=== PATIENT | female | born 1930 | race Caucasian/White ===

== ENCOUNTER 2018-10-24 10:20 | Inpatient (IN) ==
[2018-10-24] MEDS ORDERED: PEPCID IV ONE (10:51)
[2018-10-24] MEDS ORDERED: SOLU-MEDROL IV ONE (10:51)
[2018-10-24] MEDS ORDERED: ASPIRIN PO ONE (10:51)
[2018-10-24] MEDS ORDERED: ROCEPHIN 1 GM in NS 50 ML IV ONE (10:51)
[2018-10-24] MEDS ORDERED: SODIUM CHLORIDE 0.9% INJ ONE (10:51)
[2018-10-24] MEDS ORDERED: NS 500 ML IV ONE (10:51)
--- NOTE | 2018-10-24 11:00 | EKG Report ---
Test Performed on : 10/24/2018 10:58:32 AM Test Reason : stroke Blood Pressure : / mmHG Vent. Rate : 104 BPM Atrial Rate : 104 BPM P-R Int : 184 ms QRS Dur : 086 ms QT Int : 322 ms P-R-T Axes : 036 -18 065 degrees QTc Int : 423 ms Sinus tachycardia. Left ventricular hypertrophy with repolarization abnormality Abnormal ECG When compared with ECG of 05-SEP-2011 11:25, premature atrial complexes. are no longer present Vent. rate has increased BY 41 BPM Unconfirmed Result
--- NOTE | 2018-10-24 11:31 | Diag Imaging Result Doc PS360 ---
EXAM: CT HEAD W/O CONTRAST 10/24/2018 HISTORY: cva,weak left arm TECHNIQUE: This exam was performed using automated exposure control, adjustment of mA or kV according to patient size, and/or use of iterative reconstruction technique. COMMENT: There are calcifications in the internal carotid and vertebral arteries. There is moderate generalized cerebral atrophy and patchy lucencies present throughout the white matter both hemispheres. There is no evidence of mass effect or bleed. There are no previous studies available for comparison. The calvarium is intact. The visualized paranasal sinuses are clear. IMPRESSION: Atrophy and chronic ischemic change. No evidence of acute disease. Electronically signed by Tuan Bernabe 10/24/2018 11:29 AM
--- NOTE | 2018-10-24 11:34 | Diag Imaging Result Doc PS360 ---
EXAM: CHEST-PORTABLE 10/24/2018 HISTORY: cough TECHNIQUE: AP portable COMMENT: There is increased interstitial opacity throughout both lungs compared to 09/05/2011. The lungs are not as well-expanded. IMPRESSION: Pulmonary edema and/or interstitial fibrosis. Electronically signed by Tuan Bernabe 10/24/2018 11:32 AM
[2018-10-24 11:43] LABS: ALLEN TEST YES; BE -4.7 mmoll (-3.0-3.0); BLOOD TYPE ARTERIAL; HCO3-(ACT) 21.2 mmoll (20.0-26.0); METHB 0.8 % (0.0-1.5); O2(CT) 15.3 mL/dL (15.0-23.0); O2HB 94.4 % (95.0-99.0); PCO2(98.6) 32 mmHg (35-45); PO2(98.6) 72 mmHg (60-100); SAMPLE BLOOD; SAO2 97.1 % (95.0-100.0); THB 11.5 g/dL (11.5-17.4); pH(98.6) 7.39 (7.35-7.45)
[2018-10-24 11:44] LABS: MODALITY CANNULA
[2018-10-24 12:36] LABS: URINE SOURCE CLEAN CATCH
[2018-10-24 12:39] LABS: BASO# 0.04 X1000 (0.0-0.2); BASO% 0.4 % (0.0-0.8); EOS# 0.26 X1000 (0.0-0.7); EOS% 2.6 % (0.0-10.0); HEMATOCRIT 36.3 % (37.0-47.0); HEMOGLOBIN 11.7 g/dL (12.0-16.0); IMM GRAN# 0.03 X1000 (0.0-0.04); IMM GRAN% 0.3 % (0.0-0.5); LYMPH# 1.23 X1000 (1.2-3.4); LYMPH% 12.3 % (20.5-51.1); MCH 28.5 PG (27-31); MCHC 32.2 g/dL (33-37); MCV 88.5 FL (81-99); MONO# 0.73 X1000 (0.11-0.59); MONO% 7.3 % (1.7-9.3); MPV 9.6 FL (7.4-10.4); NEUT# 7.68 X1000 (1.4-6.5); NEUT% 77.1 % (42.2-75.2); PLT 288 X1000 (130-400); RDW 13.5 % (11.5-14.5); WBC 9.97 X1000 (4.8-10.8)
[2018-10-24 12:40] LABS: BILIRUBIN URINE NEGATIVE (NEGATIVE); BLOOD URINE NEGATIVE (NEGATIVE); COLOR YELLOW; GLUCOSE URINE NEGATIVE (NEGATIVE); KETONE URINE NEGATIVE (NEGATIVE); LEUKOCYTES URINE SMALL (NEGATIVE); NITRITE URINE NEGATIVE (NEGATIVE); PH URINE 5.5; PROTEIN URINE NEGATIVE (NEGATIVE); SP GRAVITY URINE 1.002; TURBIDITY URINE CLEAR (CLEAR); UROBILINOGEN URINE NORMAL (NORMAL)
[2018-10-24 12:42] LABS: UR EPITHELIAL CELLS <10 /HPF (<10); URINE BACTERIA NEGATIVE /HPF; URINE RBC <10 /HPF (<10); URINE WBC <10 /HPF (<10)
[2018-10-24 12:47] LABS: INR 1.07; PROTIME 14.8 Seconds (11.0-16.0)
[2018-10-24 12:48] LABS: PTT 26.7 Seconds (22.3-41.8)
[2018-10-24 13:03] LABS: CALCIUM 8.8 mg/dL (8.8-10.2); CREATININE 1.4 mg/dL (0.5-0.9); POTASSIUM 4.4 mmol/L (3.5-5.1)
[2018-10-24 14:27] LABS: IRON SATURATION 4 %; TIBC 281 ug/dL; TOTAL IRON 11 ug/dL (49-151); UNBOUND IRON 270 ug/dL (112-346)
--- NOTE | 2018-10-24 14:27 | Diag Imaging Result Doc PS360 ---
EXAM: CT THORAX W/O CONTRAST INDICATION: resp failure TECHNIQUE: This exam was performed using automated exposure control, adjustment of mA or kV according to patient size, and/or use of iterative reconstruction technique. COMPARISON: None. FINDINGS: There is severe interstitial thickening throughout both lungs with groundglass opacities. Most of this represents pulmonary fibrosis. It would be very difficult to exclude superimposed pulmonary edema or pneumonia as there are no prior studies available for comparison. There is no pleural fluid collection and no pneumothorax. There is no cardiomegaly. There is a calcified right lower lobe nodule indicating a granuloma. There are calcified mediastinal lymph nodes indicating prior granulomatous disease. No significant lymphadenopathy is appreciated, otherwise. Limited views of the upper abdomen are essentially unremarkable. IMPRESSION: Severe bilateral pulmonary fibrosis. A component of superimposed pneumonia or interstitial edema cannot be excluded as there are no prior studies available for comparison. Electronically signed by Shayne Shah 10/24/2018 2:25 PM
[2018-10-24] MEDS ORDERED: DUONEB (A & A) INH PRN (14:33)
[2018-10-24 14:46] LABS: FERRITIN 313 ng/mL (13-150)
--- NOTE | 2018-10-24 15:31 | HISTORY AND PHYSICAL ---
PRIMARY CARE PROVIDER: ERENDIRA Disla CHIEF COMPLAINT: Altered mental status, cough, and hypoxia. HISTORY OF PRESENT ILLNESS: Mrs. Gomez is a very pleasant 88-year-old female with a history of mild dementia, GERD, hyperlipidemia, and arthritis, who presents from [facility] with hypoxia and altered mental status. She has had a cough that started around a week ago and was treated with nebulized bronchodilators with some relief, but she is having increased cough, increased respiratory rate, and subjective fevers and chills. This morning, after she had breakfast, she sat down in one of the hallways and started having nausea and vomiting. When the staff checked on her she had a somewhat of a blank gaze and was confused. Vital signs were checked and she was found to be hypoxic. 911 was called and she was brought here. She is complaining of left arm weakness. There is clear left upper extremity neuro deficit consistent with cerebrovascular accident. Chest x-ray shows a fibrotic type picture with pulmonary edema. She, herself, denies any chest pain or lower extremity edema. She does have a cough with shortness of breath but this has only been over the past few days and weeks. She denies orthopnea or PND. She also had a head CT done which did not show anything acute. The rest of her lab data did show mild renal insufficiency, mild elevation in her lactic acid, and some anemia. Currently, she is hemodynamically stable. She is complaining of cough. We will admit her for further treatment and evaluation. PAST MEDICAL HISTORY: 1. Fairly recent diagnosis of CKD stages 1 to 2. 2. Mild dementia. 3. GERD. 4. Hyperlipidemia. 5. Osteoarthritis. SURGICAL HISTORY: She has had a hysterectomy, multiple breast biopsies, which were negative, right hip arthroplasty. SOCIAL HISTORY: She currently resides at [facility]. She is . Denies tobacco, alcohol, or drug use. FAMILY HISTORY: Father from leukemia, mother from CHF. REVIEW OF SYSTEMS: A 14-point review of systems obtained and found to be negative with the exception of the HPI. ALLERGIES: Codeine. HOME MEDICATIONS: Have not yet been compiled by the nursing staff. PHYSICAL EXAMINATION: VITAL SIGNS: Blood pressure 185/86. Heart rate 105. Respiratory rate 23. O2 saturation 96% on 2 L nasal cannula. Temperature 98.4. GENERAL: Elderly female lying on the hospital bed in no acute distress. NEUROLOGIC: She is somewhat confused. She is unable to give the exact day and month but does give the correct year, President, and place. She has clear left upper extremity weakness, 3/5, as compared to 5/5 in all other extremities. She has diminished sensation over the left hand and has diminished random alternating movements. Her uplcpk-ph-meji is also clearly abnormal. She does not have any facial drooping or slurred speech. Her speech pattern is clear. HEENT: Head is atraumatic and normocephalic. Pupils are equal, round, and reactive to light. Oral mucosa is somewhat dry. NECK: Trachea is midline. There is no JVD. CHEST: Fine crackles in the lung bases. CV: Slightly irregular. S1, S2 is noted. There is a 2/6 murmur. GI: Soft, nondistended, nontender. Bowel sounds are active. EXTREMITIES: No edema, clubbing, or cyanosis. Pulses are 1+ bilaterally. IMAGING: Head CT shows atrophy and chronic ischemic changes, nothing acute. Chest x-ray shows pulmonary edema and/or interstitial fibrosis. EKG shows sinus tachycardia with LVH. LABORATORY DATA: WBC 9.97, hemoglobin 11.7, hematocrit 36.3, platelet count 288. INR 1.07. ABG on nasal cannula: pH 7.39, CO2 32, O2 72, bicarbonate 21.2. Sodium 139, potassium 4.4, chloride 103, CO2 18, anion gap 18, BUN 20, creatinine 1.4, glucose 110, calcium 8.8. Troponin negative. Lactic acid 2.3. UA shows small leukocytes, otherwise negative ASSESSMENT AND PLAN: 1. Suspected Acute CVA. Will order the routine stroke work up to include an MRI and MRA of the brain carotid duplex study and echocardiogram. Will start the patient on aspirin and lipitor. PT and OT will be consulted. The patient will be monitored on telemetry. 2. Community acquired pneumonia: She does have subjective fever and chills with cough. We will check a thorax CT to evaluate the lung parenchyma better, given the reports of possible fibrosis. Will continue breathing treatments, aggressive pulmonary toilet , and may consider Pulmonary consultation, depending on the CT. 3. Nausea and vomiting: Unclear if there are any specific gastrointestinal issues. She denies any abdominal pain. No diarrhea, melena, or hematochezia. It is possible that it is secondary either to possible stroke and/or post-tussive emesis. Will monitor her for now. Hepatic panel is pending. 4. Anemia: Will check iron studies and treat accordingly. 5. Chronic kidney disease: Creatinine 1.4. We are checking urine electrolytes. Will hold off on any nephrotoxic agents and monitor response. 6. Hyperlipidemia/hypertension/gastroesophageal reflux disease/dementia: These are all stable. We will continue home medications with the exception of any antihypertensives and nephrotoxic agents. 7. Deep venous thrombosis with sequential compression devices. Further recommendations to follow. Dictated by ERENDIRA Estrella for Randa Vázquez MD cc: ERENDIRA Estrella MD Amanda K. Anderson, CRNP I performed a face to face encounter on the patient. I reviewed all imaging and labs on the patient. I agree with the H&P as dictated. The patient presented to the ER with a chief complaint of altered mental status, left upper extremity weakness and left facial droop. The head CT showed atrophy and chronic ischemic changes. On exam, the patient was noted to be alert but oriented to person and place only. She had 3/5 strength in her left arm and 5/5 strength in all other extremities. The patient has coarse breath sounds with fine expiratory crackles. The patient will be admitted to the medical floor on telemetry. Will also initiate a stroke workup. Given the findings of pulmonary fibrosis on the chest xray, a CT of the thorax will be obtained. The patient will be started on antibiotics and bronchodilator therapy for pneumonia. Will consult with the bindery cutter operator for further assistance with management. AMRIK
--- NOTE | 2018-10-24 16:08 | Diag Imaging Result Doc PS360 ---
EXAM: MRI BRAIN W/O CONTRAST INDICATION: left arm weakness COMPARISON: CT head dated 10/24/2018. No prior MRI brain is available for comparison. FINDINGS: There are a couple of tiny foci of restricted diffusion involving the posterior superior aspect of the right frontal lobe just anterior to the central sulcus and probably a similar tiny focus in the left parietal lobe superior just posterior to the central sulcus. These are consistent with small acute cortical infarcts. There is prominent brain atrophy bilaterally, slightly more prominent on the left. There is no discrete intracranial mass, mass effect, or intracranial hemorrhage. There is a chronic lacunar infarcts involving the cerebellum on the right. There is suggestion of mild white matter microangiopathy. The surrounding soft tissues and bony structures are essentially unremarkable. IMPRESSION: 1.A few tiny acute cortical infarcts involving the posterior superior right frontal lobe and possibly one in the posterior superior left parietal lobe. 2.Significant brain atrophy. 3.Other incidental/nonacute findings detailed above. Electronically signed by Shayne Shah 10/24/2018 4:05 PM
--- NOTE | 2018-10-24 16:13 | Diag Imaging Result Doc PS360 ---
EXAM: MRA BRAIN W/O CONTRAST INDICATION: Left arm weakness TECHNIQUE: 3-D [id number] axial images and 3-D MIPS were obtained. COMPARISON: None. FINDINGS: There is truncation of the distal left DESIGNER AND PATTERNMAKER as compared to the right, which could indicate a high-grade stenosis. The ACAs and MCAs exhibit no flow-limiting stenosis. There is no evidence of vascular malformation or cerebral aneurysm. The distal ICAs are unremarkable. The basilar artery is unremarkable. IMPRESSION: Truncation of the distal left DESIGNER AND PATTERNMAKER as compared to the right, which could indicate high-grade stenosis. No other flow-limiting stenosis is appreciated. Electronically signed by hSayne Shah 10/24/2018 4:11 PM
--- NOTE | 2018-10-24 16:21 | Diag Imaging Result Doc PS360 ---
EXAM: MRA NECK W/O CONT INDICATION: Left Arm Weakness TECHNIQUE: Axial 2-D ddod-[id number] images through the neck were obtained. 3-D MIPS were generated. COMPARISON: None. FINDINGS: Spatial resolution is limited by lack of IV contrast. There is probably a moderate stenosis involving the ICAs just distal to the bifurcations bilaterally, more prominent on the right. However, there is significant artifact in this region which could easily cause this appearance and there is no IV contrast. There is no other sign of flow-limiting stenosis, vascular malformation, or aneurysm involving the carotid systems. The left vertebral artery is dominant. There is signal dropout involving both vertebral arteries distally. However, this is assumed to be an artifact of the 2-D afdg-yv-[id number] noncontrast images due to the horizontal orientation of the vertebral arteries at these segments. No other sign of flow-limiting stenosis is identified involving the vertebral arteries. IMPRESSION: 1.Limited study due to lack of IV contrast. 2.Potential moderate stenosis involving the ICAs bilaterally just distal to bifurcations, more prominent on the right. Electronically signed by Shayne Shah 10/24/2018 4:19 PM
[2018-10-24 17:02] LABS: HEMOGLOBIN A1C 5.9 % (4.8-6.0)
[2018-10-24] MEDS: DUONEB (A & A) INH SCH ×4 (17:07→23:00)
[2018-10-24 17:31] LABS: ALB/GLOB RATIO 0.9; ALBUMIN 3.6 g/dL (3.5-5.0); DIRECT BILIRUBIN 0.1 mg/dL (0.00-0.20); TOTAL BILIRUBIN 0.33 mg/dL (0.20-1.00); TOTAL PROTEIN 7.8 g/dL (6.3-8.3)
[2018-10-24 17:43] LABS: CK INDEX 2.6 (0.0-2.5); CK-MB 4.79 ng/mL (0.0-5.0)
[2018-10-24] MEDS: SOLU-MEDROL IV SCH ×2 (18:03→23:11)
[2018-10-24 21:35] LABS: CK INDEX 2.8 (0.0-2.5); CK-MB 5.32 ng/mL (0.0-5.0)
[2018-10-24] MEDS: TESSALON PO PRN (23:07)
[2018-10-24] MEDS: MAXIPIME 2 GM in NS 100 ML IV SCH (23:08)
[2018-10-25 03:45] LABS: CK INDEX 3.1 (0.0-2.5); CK-MB 7.3 ng/mL (0.0-5.0)
[2018-10-25] MEDS: DUONEB (A & A) INH SCH ×6 (03:46→23:36)
--- NOTE | 2018-10-25 03:46 | CONSULTATION ---
DATE OF CONSULTATION: 10/24/2018 REQUESTING PHYSICIAN: ERENDIRA Tyson. REASON FOR CONSULTATION: Pulmonary fibrosis. HISTORY OF PRESENT ILLNESS: This is an 88-year-old female with a medical history of chronic kidney disease, dementia, gastroesophageal reflux disease, hypertension , hyperlipidemia, and osteoarthritis. She presented to the ER this morning with nausea, vomiting, hypoxia and confusion. Head CT in the ER shows no evidence of acute disease, but atrophic and chronic ischemic change. Chest CT revealed severe bilateral pulmonary fibrosis throughout both lungs, and a complement of superimposed pneumonia or interstitial edema that cannot be excluded as there are no previous studies available for comparison. Lab revealed elevated creatinine 1.4, slightly elevated creatinine kinase 186, elevated proBNP 2538, and elevated plasma lactate 2.32. The patient also has anemia. Other labs were nonsignificant. The patient has been admitted to the medical floor for further evaluation and management. At the time of my examination, the patient reports she is feeling better. She appears tired and is resting comfortably in the bed. The patient's daughter is at the bedside and she answers most of my questions. The patient's daughter reports as the patient's dementia worsened she could not take care of herself. Since last May the patient has been living in assisted living. She has cough and shortness of breath for over a week, which has been treated with nebulized bronchodilators. The nebulizer helps the patient's breathing, but not the cough. This morning the patient had 1 episode of nausea and vomiting. She also has left arm weakness and confusion. She has pedal edema once in a while. She has no history of asthma. She reports no abdominal pain, diarrhea, chest pain or palpitation. PAST MEDICAL HISTORY: 1. Chronic kidney disease, newly diagnosed, followed by Dr. Quiros. 2. Dementia, mild. 3. Gastroesophageal reflux disease. 4. Hypertension. 5. Hyperlipidemia. 6. Osteoarthritis. PAST SURGICAL HISTORY: 1. Hypertension. 2. Multiple negative breast biopsies. 3. Right hip replacement. SOCIAL HISTORY: The patient lives at [facility] since last May. She has no history of tobacco, alcohol or illicit drug use. FAMILY HISTORY: Father of leukemia. Mother of heart attack. The patient has 1 sister who has no significant chronic health problems. ALLERGIES: Codeine. REVIEW OF SYSTEMS: A 10-point review of systems was conducted and the pertinent is listed within the HPI, otherwise noncontributory. PHYSICAL EXAMINATION: Vital Signs: Temperature 98.4, blood pressure 170/71, pulse 94, respiration rate 19, oxygen saturation 96% on nasal cannula at 2 L. General: A pleasant and cooperative elderly female lying on the bed in no acute distress. HEENT: Atraumatic. Trachea midline. Mucosa pink and slightly dry. Respiratory: Even and unlabored. Chest expansion is equal bilaterally. Early inspiratory fine crackles bibasilarly with high pitched expiratory wheezing in the right upper and middle lung zones. Cardiovascular: Regular rate and rhythm with murmur noted. Gastrointestinal: Normoactive bowel sounds in all 4 quadrants. Soft, nondistended, nontender. Extremities: No pedal edema. No cyanosis. No clubbing. Dorsalis pedis pulse 1+ bilaterally. Neurologic: Alert and oriented to person and place. Speech is fluent. Confusion at times with obvious left upper extremity weakness and mild left lower extremity weakness noted. DIAGNOSTIC DATA: See HPI. LABORATORY DATA: White blood cell 9.97, hemoglobin 11.7, hematocrit 36.3, platelet 288,000. Sodium 139, potassium 4.4, chloride 103, carbon dioxide 18, BUN 20, creatinine 1.4, glucose 118. ABGs: pH 7.39, pCO2 of 32, PO2 of 72, HCO3 of 21.2, base excess -4.7, and oxyhemoglobin 94.4. ASSESSMENT AND PLAN: This is an 88-year-old female with a medical history of newly diagnosed chronic kidney disease, mild dementia, gastroesophageal reflux disease , hyperlipidemia, and osteoarthritis. She has been admitted to the medical floor with encephalopathy with stroke- like symptoms, community-acquired pneumonia, with severe pulmonary fibrosis, nausea and vomiting. 1. Acute hypoxic respiratory failure likely secondary to pneumonia and pulmonary fibrosis. Continue supplemental oxygen as needed. Continue bronchodilators. Check proBNP, routine ABG and chest x-ray as indicated. 2. Encephalopathy with stroke-like symptoms. Head CT shows no evidence of acute disease. Brain MRI shows high grade stenosis in the distal left QUILL REAMER. Brain MRI shows a few tiny acute cortical infarcts. Agree to start aspirin. Agree to assess and monitor neurological status every 4 hours. Monitor and control blood pressures cautiously. 3. Community-acquired pneumonia. Continue antibiotics and bronchodilators. Agree with aggressive pulmonary toilet. Continue supplemental oxygen as needed. Chest x-ray as indicated. 4. Severe pulmonary fibrosis likely with acute exacerbation. Start high-dose steroids. Continue antibiotic, bronchodilators, and supplemental oxygen. 5. Nausea and vomiting, etiology uncertain. The patient has no more episodes of nausea or vomiting at this time. Keep monitoring. 6. Continue gastrointestinal and deep venous thrombosis prophylaxis. Thank you for the courtesy of this consult. Dictated by ERENDIRA Miller for Mimi Keller MD cc: ERENDIRA Miller MD [facility]
[2018-10-25] MEDS: PROTONIX PO SCH (07:22)
[2018-10-25] MEDS: TESSALON PO PRN ×2 (07:23→14:02)
[2018-10-25] MEDS: SOLU-MEDROL IV SCH ×3 (07:25→21:02)
--- NOTE | 2018-10-25 07:25 | Diag Imaging Result Doc PS360 ---
EXAM: CHEST-1 VIEW INDICATION: SOB TECHNIQUE: One view COMPARISON: 10/24/2018 FINDINGS: Inspiration is suboptimal. There is stable diffuse interstitial thickening suggesting pulmonary edema and/or fibrosis. No new consolidation is appreciated. Cardiac silhouette is stable. IMPRESSION: Stable chest Electronically signed by Shayne Shah 10/25/2018 7:23 AM
[2018-10-25 07:59] LABS: BASO# 0.01 X1000 (0.0-0.2); BASO% 0.1 % (0.0-0.8); EOS# 0.01 X1000 (0.0-0.7); EOS% 0.1 % (0.0-10.0); HEMATOCRIT 34.2 % (37.0-47.0); HEMOGLOBIN 11.3 g/dL (12.0-16.0); IMM GRAN# 0.03 X1000 (0.0-0.04); IMM GRAN% 0.3 % (0.0-0.5); LYMPH# 1.21 X1000 (1.2-3.4); LYMPH% 13.2 % (20.5-51.1); MCV 87.9 FL (81-99); MONO# 0.55 X1000 (0.11-0.59); MPV 9.9 FL (7.4-10.4); NEUT# 7.34 X1000 (1.4-6.5); NEUT% 80.3 % (42.2-75.2); PLT 267 X1000 (130-400); RBC 3.89 XMIL (4.2-5.4); RDW 13.4 % (11.5-14.5); WBC 9.15 X1000 (4.8-10.8)
[2018-10-25 08:38] LABS: CALCIUM 8.8 mg/dL (8.8-10.2); CREATININE 1.1 mg/dL (0.5-0.9); POTASSIUM 4.2 mmol/L (3.5-5.1)
[2018-10-25] MEDS: LASIX IV SCH ×2 (09:39→21:03)
[2018-10-25] MEDS: ASPIRIN PO SCH (09:40)
[2018-10-25] MEDS: FOLIC ACID PO SCH (09:40)
[2018-10-25] MEDS ORDERED: NON-FORMULARY MED (Esomeprazole Magnesium [Nexium] 20 MG) PO SCH (10:30)
--- NOTE | 2018-10-25 10:50 | ECHO REPORT ---
ORDER DATE: 10/24/2018 MEASUREMENTS: 1. Left ventricular end-diastolic diameter 4.1. 2. End-systolic diameter 2.7. 3. Septal thickness 1.2. 4. Posterior wall thickness 0.9. 5. Aortic root 2.8. 6. Left atrium 3.2. SUMMARY: 1. Adequate quality study. 2. The aortic valve is trileaflet and opens normally on 2-dimensional images. There is mild aortic regurgitation. Mitral, tricuspid, and pulmonic valves are without evidence of structural abnormality with mild mitral regurgitation and mild to moderate tricuspid regurgitation. The estimated systolic PA pressure by Doppler is 65-70 mmHg suggesting moderate pulmonary hypertension. The aortic root is normal in size. 3. Normal left ventricular chamber size with borderline concentric left hypertrophy suggested. Estimated left ventricular ejection fraction appears to be at least 65%. No regional wall motion abnormalities are evident. Doppler suggests grade 1 left ventricular diastolic dysfunction. The left atrium appears upper normal in size on 2-dimensional images. The right atrium and right ventricle are normal in size with normal right ventricular systolic function. 4. No pericardial effusion. 5. Appearance of inferior vena cava suggests normal central venous pressure. cc: MD Gustavo Brown CRNP
[2018-10-25] MEDS: GLUCOSAMINE PO SCH ×2 (14:01→21:03)
[2018-10-25] MEDS: FLONASE NAS SCH (14:01)
[2018-10-25] MEDS: LOFIBRA PO SCH (14:02)
[2018-10-25] MEDS: ZYRTEC PO SCH (14:02)
--- NOTE | 2018-10-25 19:07 | PROGRESS NOTE ---
DATE: 10/25/2018 SUBJECTIVE: The patient is resting comfortably. She states that she has been coughing a lot overnight and even this morning. She denies having any chest pain, headache or dizziness. OBJECTIVE: Vital Signs: Temperature 97.4 degrees, blood pressure 129/54, heart rate 81, respirations 17, O2 saturation 94% on 1 L nasal cannula. General: This is a chronically ill- appearing elderly female lying in bed in no acute distress. Head: Normocephalic, atraumatic. Heart: S1, S2 normal. Regular rate and rhythm. Lungs: Mild expiratory crackles. Abdomen: Positive bowel sounds. Soft, nontender, nondistended. Extremities: No edema, no cyanosis. Neuro: The patient is alert and oriented x3. LABS: White blood cell count 9.1, hemoglobin 11, hematocrit 34, platelets 267,000, sodium 140, potassium 4.2, chloride 106, CO2 20, BUN 22, creatinine 1.1, glucose 137, mag 2, troponin 0.02, CK- MB 7.3, proBNP 4243. ASSESSMENT AND PLAN: 1. Acute cerebrovascular accident. The patient is on full-dose aspirin and Lipitor with a carotid duplex study currently pending. The echocardiogram does not show any evidence of thrombus. 2. Severe pulmonary fibrosis. This is a new diagnosis for the patient. She states that she did not know that she had this disorder. Will await further recommendations from the blindstitch hemmer. 3. Moderate pulmonary hypertension. Aware. 4. Acute kidney injury. Improved. 5. Acute diastolic congestive heart failure exacerbation. We will start the patient on diuretic therapy and monitor her output closely. 6. Folate deficiency. The patient has been started on folic acid. 7. Dementia. Continue on Aricept. 8. Hypothyroidism. Continue on Synthroid. 9. Deep vein thrombosis prophylaxis. Continue on Lovenox. cc: Randa Vázquez MD
[2018-10-25] MEDS: PRINIVIL PO SCH (21:03)
[2018-10-25] MEDS: TESSALON PO SCH (21:03)
[2018-10-25] MEDS: LIPITOR PO SCH (21:04)
[2018-10-25] MEDS: MAXIPIME 2 GM in NS 100 ML IV SCH (21:04)
[2018-10-25] MEDS: ARICEPT PO SCH (21:04)
--- NOTE | 2018-10-26 00:17 | PULMONOLOGY PROGRESS NOTE ---
DATE: 10/25/2018 SUBJECTIVE: The patient is awake alert and conversant. She does not recall the events leading to the hospital stay. OBJECTIVE: Vital Signs: Blood pressure 133/47, heart rate 89, respiratory rate 17. Oxygen saturation 99% on 2 L per nasal cannula. HEENT: Pupils are equal and reactive. Oropharynx is clear. Neck: Supple. Chest: Reveals crackles, predominantly in the lung bases. Cardiac: S1, S2. Abdomen: Soft, without hepatosplenomegaly. Extremities: Without edema. LABORATORY STUDIES: Chest x-ray reveals bilateral infiltrates with shallow inspiration. White blood count 9.15, hemoglobin 11.3, platelet count 267,000. IMPRESSION: An 88-year-old with acute cerebrovascular accident, acute hypoxemic respiratory failure, moderate pulmonary hypertension, pulmonary fibrosis, and persistent cough. Without recent x-rays, it is difficult to decide if she has an [id number] process, or simply a chronic progressive process. RECOMMENDATIONS: 1. Continue current antibiotic and steroid regimen. 2. Consider adding a narcotic antitussive such as Tussionex if her cough is not well-controlled on Tessalon. This would be a chronic medication for discharge. 3. Continue oxygen for hypoxemic respiratory failure. 4. Send a connective tissue cascade to rule out underlying connective tissue diseases, although she denies specific rheumatologic illnesses in the past. 5. [facility]. No medicines which can cause pulmonary fibrosis were identified. If the connective tissue workup is negative, we will assume that her fibrosis is idiopathic in nature. cc: Man Magallanes MD
[2018-10-26] MEDS: SOLU-MEDROL IV SCH ×4 (01:51→20:43)
[2018-10-26] MEDS: DUONEB (A & A) INH SCH ×5 (03:37→19:11)
[2018-10-26] MEDS: PROTONIX PO SCH (07:10)
[2018-10-26 07:28] LABS: HEMATOCRIT 37.3 % (37.0-47.0); HEMOGLOBIN 12.5 g/dL (12.0-16.0); IMM GRAN# 0.04 X1000 (0.0-0.04); IMM GRAN% 0.2 % (0.0-0.5); LYMPH% 6.8 % (20.5-51.1); MCH 28.8 PG (27-31); MCHC 33.5 g/dL (33-37); MCV 85.9 FL (81-99); MONO# 0.85 X1000 (0.11-0.59); MONO% 5.2 % (1.7-9.3); MPV 9.7 FL (7.4-10.4); NEUT# 14.23 X1000 (1.4-6.5); NEUT% 87.8 % (42.2-75.2); PLT 406 X1000 (130-400); RBC 4.34 XMIL (4.2-5.4); RDW 13.5 % (11.5-14.5); WBC 16.22 X1000 (4.8-10.8)
[2018-10-26 07:59] LABS: CALCIUM 9.7 mg/dL (8.8-10.2); CREATININE 1.6 mg/dL (0.5-0.9); POTASSIUM 3.7 mmol/L (3.5-5.1)
--- NOTE | 2018-10-26 08:12 | Diag Imaging Result Doc PS360 ---
EXAM: CHEST-PORTABLE HISTORY: pulmonary edema TECHNIQUE: Portable chest single view COMPARISON: 10/25/2018 FINDINGS: Poor inspiratory effort. There are bilateral infiltrates. Heart is not enlarged. No pleural effusions identified. IMPRESSION: No interval improvement. Electronically signed by Tung Redd 10/26/2018 8:10 AM
[2018-10-26] MEDS ORDERED: LOVENOX SUBQ SCH (09:00)
[2018-10-26] MEDS: FLONASE NAS SCH (09:43)
[2018-10-26] MEDS: ROBITUSSIN-DM PO PRN ×3 (09:43→20:32)
[2018-10-26] MEDS: ASPIRIN PO SCH (09:45)
[2018-10-26] MEDS: TESSALON PO SCH ×3 (09:46→20:44)
[2018-10-26] MEDS: ZYRTEC PO SCH (09:46)
[2018-10-26] MEDS: SYNTHROID PO SCH (09:46)
[2018-10-26] MEDS: FOLIC ACID PO SCH (09:46)
[2018-10-26] MEDS: PRINIVIL PO SCH ×2 (09:46→20:43)
[2018-10-26] MEDS: GLUCOSAMINE PO SCH ×2 (09:47→20:44)
[2018-10-26] MEDS: LOFIBRA PO SCH (09:55)
--- NOTE | 2018-10-26 14:45 | PROGRESS NOTE ---
DATE: 10/26/2018 SUBJECTIVE: The patient is resting comfortably in bed. Her daughter is at the bedside. The patient states that her coughing has improved. She does complain of some weakness in her left arm. OBJECTIVE: Vital Signs: Temperature 94.6, blood pressure 96/51, heart rate 95, respirations 18, O2 saturation 95% on 2 L nasal cannula. General: This is an elderly female sitting up in bed in no acute distress. Heart: S1, S2 normal. Regular rate and rhythm. Lungs: Equal air entry. Mild expiratory crackles. Abdomen: Positive bowel sounds. Soft, nontender, nondistended. Extremities: No edema. No cyanosis. Neurologic: The patient does have mild weakness in the left upper extremity about 4/5. LABORATORY DATA: White blood cell count 16, hemoglobin 12, hematocrit 37, platelets 406,000. Sodium 139, potassium 3.7. BUN 38, creatinine 1.6, glucose 149, magnesium 1.9. Chest x-ray shows bilateral infiltrates. ASSESSMENT AND PLAN: 1. Acute cerebrovascular accident. Continue on aspirin and Lipitor. Physical therapy and occupational therapy have been consulted. The Carotid Duplex Study is currently pending. 2. Severe pulmonary fibrosis. The workup is in progress. Further management as per the appeals nurse. 3. Possible pneumonia. Continue with antibiotic therapy. 4. Moderate pulmonary hypertension, aware. 5. Acute kidney injury. This is likely diuretic induced. We will discontinue the Lasix. 6. Folate deficiency. Continue with folic acid. 7. Dementia. Continue on Aricept. 8. Hypothyroidism. Continue on Synthroid. 9. Leukocytosis. This is likely steroid induced. 10. Deep vein thrombosis prophylaxis; continue on Lovenox. 11. Continue with physical therapy. cc: Randa Vázquez MD
[2018-10-26] MEDS: LIPITOR PO SCH (20:43)
[2018-10-26] MEDS: ARICEPT PO SCH (20:43)
[2018-10-26] MEDS: MAXIPIME 2 GM in NS 100 ML IV SCH (20:44)
--- NOTE | 2018-10-26 20:53 | PULMONOLOGY PROGRESS NOTE ---
DATE: 10/26/2018 SUBJECTIVE: Patient reports she feels better. Her cough has diminished. She is having no shortness of breath. OBJECTIVE: The patient has been afebrile over the last 24 hours. Blood pressure 137/64, heart rate 86, respiratory rate 16, oxygen saturation 95% on 2 L per nasal cannula.HEENT: Pupils are equal and reactive. Oropharynx is clear. Neck: Is supple. Chest: Reveals bibasilar crackles without wheezing or rhonchi. Cardiac: S1-S2. Abdomen: Soft and without hepatosplenomegaly. Extremities: Without edema. LABORATORIES: Chest x-ray reveals bilateral fibrosis. Sodium 139, potassium 3.7, chloride 99, bicarbonate 21, BUN 38, creatinine 1.6. IMPRESSION: An 88-year-old with acute cerebrovascular accident, acute hypoxemic respiratory failure, moderate pulmonary hypertension, pulmonary fibrosis, chronic cough with acute renal insufficiency. Clinically, she reports she is improving. Her cough has diminished with Tessalon. RECOMMENDATION: 1. Continue antibiotic and steroid regimen. 2. Avoid nephrotoxic drugs. 3. Consider Tussionex if her cough is not controlled with Tessalon. 4. Continue oxygen for hypoxemic respiratory failure. 5. Await results of connective tissue cascade. 6. Outpatient followup of pulmonary fibrosis. cc: Man Magallanes MD
[2018-10-27] MEDS: DUONEB (A & A) INH SCH ×7 (00:10→23:10)
[2018-10-27] MEDS: ROBITUSSIN-DM PO PRN ×4 (01:31→16:46)
[2018-10-27] MEDS: SOLU-MEDROL IV SCH ×2 (01:32→09:51)
[2018-10-27] MEDS: TESSALON PO PRN (04:09)
[2018-10-27] MEDS: PROTONIX PO SCH (06:39)
[2018-10-27 07:25] LABS: HEMATOCRIT 35.5 % (37.0-47.0); HEMOGLOBIN 11.7 g/dL (12.0-16.0); IMM GRAN# 0.04 X1000 (0.0-0.04); IMM GRAN% 0.3 % (0.0-0.5); LYMPH# 1.31 X1000 (1.2-3.4); LYMPH% 9.7 % (20.5-51.1); MCH 28.6 PG (27-31); MCV 86.8 FL (81-99); MONO# 0.85 X1000 (0.11-0.59); MONO% 6.3 % (1.7-9.3); MPV 9.8 FL (7.4-10.4); NEUT# 11.33 X1000 (1.4-6.5); NEUT% 83.7 % (42.2-75.2); PLT 343 X1000 (130-400); RBC 4.09 XMIL (4.2-5.4); RDW 13.5 % (11.5-14.5); WBC 13.53 X1000 (4.8-10.8)
[2018-10-27 07:45] LABS: CALCIUM 8.5 mg/dL (8.8-10.2); CREATININE 1.8 mg/dL (0.5-0.9); POTASSIUM 4.1 mmol/L (3.5-5.1)
--- NOTE | 2018-10-27 08:09 | Diag Imaging Result Doc PS360 ---
EXAM: CHEST-PORTABLE - 10/27/2018 HISTORY: dyspnea TECHNIQUE: Portable chest COMPARISON: 10/26/2018 FINDINGS: Heart size appears upper normal. There are ill-defined bilateral infiltrates similar to prior. There is no substantial pleural effusion or pneumothorax identified. IMPRESSION: Stable bilateral infiltrates. Electronically signed by French Fernandez 10/27/2018 8:07 AM
[2018-10-27] MEDS: FLONASE NAS SCH (09:50)
[2018-10-27] MEDS: ASPIRIN PO SCH (09:52)
[2018-10-27] MEDS: ZYRTEC PO SCH (09:52)
[2018-10-27] MEDS: GLUCOSAMINE PO SCH ×2 (09:52→22:12)
[2018-10-27] MEDS: FOLIC ACID PO SCH (09:52)
[2018-10-27] MEDS: SYNTHROID PO SCH (09:52)
[2018-10-27] MEDS: LOFIBRA PO SCH (09:52)
[2018-10-27] MEDS: TESSALON PO SCH ×3 (09:53→22:11)
[2018-10-27] MEDS: LOVENOX SUBQ SCH (10:07)
--- NOTE | 2018-10-27 20:16 | PULMONOLOGY PROGRESS NOTE ---
DATE: 10/27/2018 SUBJECTIVE: Patient is awake, alert and conversant. She has minimal sputum production. She reports her shortness of breath has improved. She has had no additional neurologic findings. OBJECTIVE: The patient has been afebrile for the last 24 hours. Blood pressure 106/50, heart rate 87, respiratory rate 18, oxygen saturation 100% on 2 L per nasal.HEENT: Pupils are equal and reactive, oropharynx clear. Neck: Is supple. Chest: Reveals bibasilar crackles. Cardiac: S1-S2. Abdomen: Soft and without hepatosplenomegaly. Extremities: Without edema. LABORATORIES: Chest x-ray reveals bilateral pulmonary fibrosis predominantly in the bases without acute change. White blood count 13.5, hemoglobin 11.7, platelet count 343,000, sodium 139, potassium 4.1, chloride 101, bicarbonate 22, BUN 47, creatinine 1.8. Connective tissue cascade pending. IMPRESSION: 88-year-old with acute cerebral vascular accident, acute hypoxemic respiratory failure, moderate pulmonary hypertension, pulmonary fibrosis and acute renal insufficiency. Clinically she reports she is improving, although she has had a slight increase in creatinine today. Her cough appears to be adequately controlled on Tessalon. RECOMMENDATION: 1. Continue current antibiotic and steroid regimen. 2. Consider Tussionex if her cough is not controlled with Tessalon. 3. Continue oxygen for hypoxemic respiratory failure. 4. Await results of connective tissue cascade. 5. Outpatient followup with pulmonary fibrosis. cc: Man Magallanes MD
--- NOTE | 2018-10-27 20:36 | PROGRESS NOTE ---
DATE: 10/27/2018 SUBJECTIVE: The patient is resting comfortably in bed. She is having regular bowel movements. She was still having coughing spells. OBJECTIVE: Vital Signs: Temperature 97.4 degrees, blood pressure 106/60, heart rate 87, respirations 18, O2 saturations 100% on 2 L nasal cannula. General: This is a chronically ill- appearing elderly female, lying in bed, in no acute distress. Heart: S1, S2 normal. Regular rate and rhythm. Lungs: Mild expiratory wheezes. Abdomen: Positive bowel sounds. Soft, nontender, nondistended. Extremities: No edema. No cyanosis. Neurologic: The patient is alert and oriented x3. LABS: White blood cell count 14, hemoglobin 11, hematocrit 35, platelets 343,000. Sodium 139, potassium 4.1, chloride 101, CO2 22, BUN 47, creatinine 1.8. Glucose 136. Magnesium 1.9. Chest x-ray shows bilateral infiltrates. ASSESSMENT AND PLAN: 1. Acute cerebrovascular accident. Continue on aspirin and Lipitor. Continue with physical therapy and occupational therapy. 2. Acute hypoxemic respiratory failure. Continue with the current treatment regimen. 3. Pulmonary fibrosis. The workup is in progress. 4. Pulmonary hypertension. Aware. 5. Acute kidney injury on chronic kidney disease. We will check urine electrolytes. We will also order a renal ultrasound. 6. Hypothyroidism. Continue on Synthroid. 7. Dementia. Continue on Aricept. 8. DVT prophylaxis. Continue on Lovenox. cc: Randa Vázquez MD
[2018-10-27 20:47] LABS: UR CREAT RANDOM 81.6 mg/dL (11-20); UR PROT RANDOM 16.2 mg/dL
[2018-10-27] MEDS: MAXIPIME 2 GM in NS 100 ML IV SCH (22:11)
[2018-10-27] MEDS: LIPITOR PO SCH (22:11)
[2018-10-27] MEDS: ARICEPT PO SCH (22:11)
[2018-10-28] MEDS: ROBITUSSIN-DM PO PRN ×2 (01:54→05:48)
[2018-10-28] MEDS: DUONEB (A & A) INH SCH ×6 (03:30→23:30)
[2018-10-28] MEDS: PROTONIX PO SCH ×2 (05:48→06:06)
--- NOTE | 2018-10-28 07:21 | Carotid Study ---
DATE: 10/26/2018 PROCEDURE: Carotid duplex imaging. REFERRING PHYSICIAN: Dr. Vázquez INTERPRETING PHYSICIAN: Yuri Peters MD TECH: [place]out INDICATIONS: Seizure with carotid bruit. EQUIPMENT: [employer] E9 ultrasound system with a 9LD transducer. OBSERVED DATA RIGHT LEFT Brachial Blood Pressure Carotid Pulse Bruits: Carotid/Sub DIAGRAM OF ULTRASOUND IMAGING R L RIGHT INT EXT INT EXT LEFT Tato (cm/s) Tato (cm/s) Subclavian 114/2 Subclavian 157/0 CCA Proximal 75/6 CCA Proximal 78/7 CCA Distal 70/6 CCA Distal 59/2 Bulb 112/6 Bulb 66/5 ICA Proximal 126/19 ICA Proximal 82/4 ICA Mid 75/13 ICA Mid 98/19 ICA Distal 70/12 ICA Distal 129/9 ECA 104/6 ECA 157/0 Vertebral 52/7 Antegrade Vertebral 48/16 Antegrade ICA/CCA Ratio 1.66 ICA/CCA Ratio 1.83 % Stenosis 40%-59% % Stenosis 40%-59% FINDINGS: There is some atherosclerosis noted to bilateral carotid arteries. There is moderate stenosis of 40%-59% bilaterally. Both vertebral arteries were antegrade flow. INTERPRETATION: Moderate stenosis of 40%-59% noted to bilateral carotid arteries. cc: MD Randa Montero MD [facility]
--- NOTE | 2018-10-28 07:27 | EKG Report ---
Test Performed on : 10/26/2018 06:35:48 AM Test Reason : tachycardia Blood Pressure : / mmHG Vent. Rate : 092 BPM Atrial Rate : 092 BPM P-R Int : 164 ms QRS Dur : 098 ms QT Int : 340 ms P-R-T Axes : 031 -20 038 degrees QTc Int : 420 ms Normal sinus rhythm. Voltage criteria for left ventricular hypertrophy Abnormal ECG When compared with ECG of 24-OCT-2018 10:58, (Unconfirmed) No significant change was found Confirmed by Brisa DANIELLE, Arsenio Maldonado ([id number]) on 10/28/2018 8:22:20 AM
[2018-10-28 07:43] LABS: BASO# 0.01 X1000 (0.0-0.2); BASO% 0.1 % (0.0-0.8); EOS# 0.07 X1000 (0.0-0.7); EOS% 0.5 % (0.0-10.0); HEMATOCRIT 35.1 % (37.0-47.0); HEMOGLOBIN 11.5 g/dL (12.0-16.0); IMM GRAN# 0.11 X1000 (0.0-0.04); IMM GRAN% 0.8 % (0.0-0.5); LYMPH# 2.81 X1000 (1.2-3.4); LYMPH% 20.7 % (20.5-51.1); MCH 28.8 PG (27-31); MCHC 32.8 g/dL (33-37); MONO# 1.35 X1000 (0.11-0.59); MONO% 9.9 % (1.7-9.3); MPV 9.9 FL (7.4-10.4); NEUT# 9.24 X1000 (1.4-6.5); PLT 342 X1000 (130-400); RBC 3.99 XMIL (4.2-5.4); RDW 13.7 % (11.5-14.5); WBC 13.59 X1000 (4.8-10.8)
[2018-10-28 07:56] LABS: CALCIUM 8.8 mg/dL (8.8-10.2); CREATININE 1.7 mg/dL (0.5-0.9); POTASSIUM 3.9 mmol/L (3.5-5.1)
--- NOTE | 2018-10-28 09:02 | Diag Imaging Result Doc PS360 ---
EXAM: US RENAL 2 (RETROPER) COMPLETE HISTORY: janey/arf TECHNIQUE: Renal ultrasound COMPARISON: None. FINDINGS: The right kidney measures 9.3 x 3.3 x 4.4 cm. There is mild cortical thinning. Normal echogenicity. No stone or hydronephrosis. No renal mass. The urinary bladder is distended and is normal. The left kidney measures 8.9 x 3.7 x 4.1 cm. There is cortical thinning. No stone or hydronephrosis. No renal mass. IMPRESSION: Renal cortical thinning consistent with medical renal disease. Electronically signed by Tung Redd 10/28/2018 9:00 AM
[2018-10-28] MEDS: ZYRTEC PO SCH (09:04)
[2018-10-28] MEDS: LOFIBRA PO SCH (09:04)
[2018-10-28] MEDS: FOLIC ACID PO SCH (09:04)
[2018-10-28] MEDS: LOVENOX SUBQ SCH (09:04)
[2018-10-28] MEDS: SOLU-MEDROL IV SCH ×2 (09:04→22:00)
[2018-10-28] MEDS: TESSALON PO SCH ×3 (09:04→18:17)
[2018-10-28] MEDS: SYNTHROID PO SCH (09:04)
[2018-10-28] MEDS: ASPIRIN PO SCH (09:04)
[2018-10-28] MEDS: FLONASE NAS SCH (09:05)
[2018-10-28] MEDS ORDERED: TUSSIONEX LIQUID PO ONE (09:50)
[2018-10-28] MEDS: GLUCOSAMINE PO SCH ×2 (10:57→22:00)
--- NOTE | 2018-10-28 13:14 | PROGRESS NOTE ---
DATE: 10/28/2018 SUBJECTIVE: The patient is resting comfortably. She continues to complain of coughing fits. OBJECTIVE: Vital Signs: Temperature 97.5 degrees, blood pressure 116/46, heart rate 78, respirations 18, O2 saturation 95% on 2 L nasal cannula. General: This is a chronically ill- appearing elderly female lying in bed in no acute distress. Heart: S1, S2. Normal. Lungs: Mild expiratory crackles. Abdomen: Positive bowel sounds. Soft, nontender, nondistended. Extremities: No edema, no cyanosis. Neurologic: The patient is alert and oriented x3. LABORATORIES: White blood cell count 13, hemoglobin 11, hematocrit 35, platelets 342,000. Sodium 140, potassium 3.9, chloride 104, CO2 23, BUN 49, creatinine 1.7, glucose 92. ASSESSMENT AND PLAN: 1. Acute cerebrovascular accident. Continue on aspirin and Lipitor. Continue with physical therapy and occupational therapy. 2. Acute hypoxemic respiratory failure. Continue with the current treatment regimen. 3. Pulmonary fibrosis. The workup is in progress. Continue with supplemental oxygen. 4. Pulmonary hypertension. Aware. 5. Acute kidney injury on chronic kidney disease. Slightly improved today. We will continue to monitor this closely. 6. Hypothyroidism. Continue on Synthroid. 7. Dementia. Continue on Aricept. 8. Deep vein thrombosis prophylaxis. The patient is on Lovenox. 9. Disposition. We will continue with physical therapy. The patient may require inpatient rehab placement. Radio Officer has been consulted. cc: Randa Vázquez MD
[2018-10-28] MEDS: LIPITOR PO SCH (22:00)
[2018-10-28] MEDS: MAXIPIME 2 GM in NS 100 ML IV SCH (22:00)
[2018-10-28] MEDS: ARICEPT PO SCH (22:01)
[2018-10-28] MEDS: TUSSIONEX LIQUID PO SCH (22:11)
[2018-10-29] MEDS: DUONEB (A & A) INH SCH ×6 (03:59→23:56)
[2018-10-29] MEDS: PROTONIX PO SCH (06:41)
[2018-10-29 07:27] LABS: BASO# 0.01 X1000 (0.0-0.2); BASO% 0.1 % (0.0-0.8); EOS# 0.03 X1000 (0.0-0.7); EOS% 0.3 % (0.0-10.0); HEMOGLOBIN 11.7 g/dL (12.0-16.0); IMM GRAN% 0.9 % (0.0-0.5); LYMPH# 1.45 X1000 (1.2-3.4); LYMPH% 13.1 % (20.5-51.1); MCH 28.5 PG (27-31); MCHC 32.5 g/dL (33-37); MCV 87.8 FL (81-99); MONO# 0.65 X1000 (0.11-0.59); MONO% 5.9 % (1.7-9.3); NEUT# 8.82 X1000 (1.4-6.5); NEUT% 79.7 % (42.2-75.2); PLT 327 X1000 (130-400); RDW 13.6 % (11.5-14.5); WBC 11.06 X1000 (4.8-10.8)
[2018-10-29 08:14] LABS: CALCIUM 9.2 mg/dL (8.8-10.2); CREATININE 1.5 mg/dL (0.5-0.9)
[2018-10-29 08:15] LABS: POTASSIUM 5.3 mmol/L (3.5-5.1)
[2018-10-29] MEDS: ZYRTEC PO SCH (08:32)
[2018-10-29] MEDS: LOVENOX SUBQ SCH (08:32)
[2018-10-29] MEDS: LOFIBRA PO SCH (08:32)
[2018-10-29] MEDS: TESSALON PO SCH ×3 (08:32→16:54)
[2018-10-29] MEDS: SOLU-MEDROL IV SCH ×2 (08:32→21:39)
[2018-10-29] MEDS: ASPIRIN PO SCH (08:32)
[2018-10-29] MEDS: SYNTHROID PO SCH (08:32)
[2018-10-29] MEDS: FOLIC ACID PO SCH (08:32)
[2018-10-29] MEDS: TUSSIONEX LIQUID PO SCH ×2 (08:32→21:36)
[2018-10-29] MEDS: GLUCOSAMINE PO SCH ×2 (08:32→21:39)
[2018-10-29] MEDS: FLONASE NAS SCH (08:38)
[2018-10-29] MEDS ORDERED: KAYEXALATE PO ONE (12:03)
--- NOTE | 2018-10-29 12:22 | PROGRESS NOTE ---
DATE: 10/29/2018 SUBJECTIVE: The patient is awake. Undergoing physical therapy during my evaluation. No new complaints today. OBJECTIVE: Vital signs: Temperature 97.5 degrees, pulse 70, respiratory rate is 18, blood pressure 147/58, oxygen saturation is 93%. HEENT: She is atraumatic, normocephalic. Cardiovascular: S1, S2. Respiratory: Has occasional rhonchi noted. Abdomen: Soft, nontender. No masses felt. Extremities: No evidence of edema. LABORATORY DATA: WBC is 11.06, hematocrit 36.0, with a platelet count of 327,000. Sodium is 138, potassium 5.3, chloride 103, bicarb 23, BUN is 49, creatinine 1.5. ASSESSMENT AND PLAN: 1. Acute cerebrovascular accident. Continue antiplatelet agent as well as statin. Continue physical therapy. 2. Acute respiratory failure/pulmonary fibrosis. Maintain patient on oxygen. Pulmonary team following. 3. Pulmonary hypertension. Aware. 4. Acute kidney injury on chronic kidney disease. Slight improvement noted in renal function. Potassium level noted to be raised and that will need to be corrected with Kayexalate. We will continue to follow up on patient's renal function. 5. Hypothyroidism. Continue Synthroid. 6. Dementia. Continue Aricept. 7. Deep vein thrombosis prophylaxis. Lovenox. 8. Disposition. The patient's daughter would like patient to be discharged back to assisted- living facility, which [place] [facility] [place] and they would like to get home health services while she is over there. cc: Jacky Conley MD
[2018-10-29] MEDS: MAXIPIME 2 GM in NS 100 ML IV SCH (21:36)
[2018-10-29] MEDS: LIPITOR PO SCH (21:38)
[2018-10-29] MEDS: ARICEPT PO SCH (21:39)
[2018-10-30] MEDS: DUONEB (A & A) INH SCH ×3 (03:27→10:50)
[2018-10-30] MEDS: ROBITUSSIN-DM PO PRN (03:43)
[2018-10-30 07:22] LABS: CALCIUM 9.2 mg/dL (8.8-10.2); CREATININE 1.4 mg/dL (0.5-0.9); POTASSIUM 4.8 mmol/L (3.5-5.1)
[2018-10-30] MEDS: PROTONIX PO SCH (07:50)
[2018-10-30] MEDS: ZYRTEC PO SCH (08:45)
[2018-10-30] MEDS: ASPIRIN PO SCH (08:45)
[2018-10-30] MEDS: GLUCOSAMINE PO SCH (08:45)
[2018-10-30] MEDS: LOFIBRA PO SCH (08:45)
[2018-10-30] MEDS: FOLIC ACID PO SCH (08:45)
[2018-10-30] MEDS: TESSALON PO SCH ×2 (08:45→13:19)
[2018-10-30] MEDS: LOVENOX SUBQ SCH (08:45)
[2018-10-30] MEDS: SYNTHROID PO SCH (08:45)
[2018-10-30] MEDS: TUSSIONEX LIQUID PO SCH (08:46)
[2018-10-30] MEDS: SOLU-MEDROL IV SCH (08:50)
[2018-10-30] MEDS: FLONASE NAS SCH (09:00)
--- NOTE | 2018-10-30 11:40 | PROVIDER DOCUMENTATION ---
This chart was entered by Alma Torres Scribe, acting as scribe for Rk Bowie MD. HPI-Respiratory General - General Chief Complaint: Shortness of Breath Stated Complaint: SOB Time Seen by Provider: 10/24/18 10:29 Source: patient, EMS (first response) Allergies/Adverse Reactions: Patient Allergies Allergy/AdvReac Type Severity Reaction Status Date / Time codeine AdvReac ITCHING Verified 10/24/18 12:30 Home Medications: Home Medication List Medication Instructions Recorded Confirmed Last Taken Type ATORVAstatin [Lipitor] 40 mg PO QHS 10/24/18 10/24/18 10/23/18 20:00 History Albuterol Sulfate [Albuterol 8.5 gm IH BID 10/24/18 10/24/18 10/24/18 08:00 History Sulfate Hfa] Celecoxib [Celebrex] 100 mg PO DIRECTED 10/24/18 10/24/18 10/23/18 08:00 History Cetirizine HCl [Zyrtec] 10 mg PO DAILY 10/24/18 10/24/18 10/24/18 08:00 History Donepezil [Aricept] 5 mg PO QHS 10/24/18 10/24/18 10/23/18 20:00 History Esomeprazole Magnesium [Nexium] 20 mg PO BID 10/24/18 10/24/18 10/24/18 08:00 History Fenofibrate [Lofibra] 160 mg PO DAILY 10/24/18 10/24/18 10/24/18 08:00 History Fluticasone 50 Mcg Nasal [place] 1 spray AMANDO DAILY 10/24/18 10/24/18 10/24/18 08: 00 History [Flonase] Glucosamine 500 mg PO BID 10/24/18 10/24/18 10/24/18 08:00 History Levothyroxine [Synthroid] 75 microgm PO DAILY 10/24/18 10/24/18 10/24/18 08:00 History Lisinopril 2.5 mg PO BID 10/24/18 10/24/18 10/24/18 08:00 History [place]-3 Fatty Acids/Fish Oil [Fish 1 each PO BID 10/24/18 10/24/18 10/24/18 08: 00 History Oil 1,000 mg Softgel] Omeprazole [Prilosec] 40 mg PO DAILY 10/24/18 10/24/18 10/24/18 08:00 History Potassium Chloride E.r. [Klor-Con] 10 meq PO DAILY 10/24/18 10/24/18 10/24/18 08 :00 History Prednisone 5 mg PO DAILY 10/24/18 10/24/18 10/24/18 08:00 History Trolamine Salicylate/Aloe Vera 35.4 gm TP 4XDAY PRN 10/24/18 10/24/18 Unknown History [Aspercreme 10% Cream] - History of Present Illness-Resp Nature of Presenting Problem: 88 yowf presents to the ed via ems with c/o sob, cough, low O2 sat 80% at home and left arm weakness with generalized fatigue for 3 days Quality of Pain: reports: aching Severity in ED: reports: moderate Onset/Duration: reports: 3 days ago Timing: reports: still present, intermittent Context: reports: recent URI Cough Quality/Degree: reports: moderate, productive cough (clear sputum) Episode Frequency: occasional episodes Current Respiratory Medication Therapy: Initiated see nurses note Modifying Factors: improves with: albuterol nebulizer, oxygen, sitting upright. worse with: exertion, coughing, lying down Associated Symptoms: reports: cough, fever/chills, muscle/bodyaches, shortness of breath, wheezing Similar Symptoms Previously?: Yes Recently seen or treated by another doctor?: No Review of Systems - Adult - REVIEW OF SYSTEMS - ADULT Constitutional: reports: see HPI, chills, fever, fatique Eyes: reports: no symptoms reported Ears, Nose, Mouth & Throat: denies: ear pain, throat pain Cardiovascular: denies: chest pain, palpitations Respiratory: reports: see HPI, cough, dyspnea on exertion, excessive sputum production, shortness of breath, wheezing Gastrointestinal: denies: abdominal pain, diarrhea, nausea, vomiting Genitourinary: reports: no symptoms reported Musculoskeletal: reports: see HPI, muscle aches, muscle weakness (left arm) Integumentary: reports: no symptoms reported Neurological: denies: ataxia, dizziness/vertigo, headache/migraines, loss of balance, numbness, paresthesia, seizure, slurred speech, syncope, tremors Psychiatric: reports: no symptoms reported Endocrine: reports: no symptoms reported Hematologic/Lymphatic: reports: no symptoms reported Allergic/Immunologic: reports: no symptoms reported All Other Systems: Reviewed and Negative Past History - Adult - PAST MEDICAL HISTORY-ADULT Review of Records: reports: Old Records Reviewed, Nursing Assessment Review, Medications Reviewed, Social history reviewed & non-contributory. Major Childhood Illnesses: reports: denies history Cardiovascular: reports: HTN Respiratory: reports: denies history Gastrointestinal: reports: GERD Obstetrical/Gynecological: reports: denies history Genitourinary: reports: denies history Musculoskeletal: reports: arthritis Neurological: reports: denies history Endocrine/Immune: reports: denies history Other Conditions: reports: denies history - PRIOR SURGERIES/PROCEDURES Surgical/Procedure History: reports: reviewed, not pertinent - IMMUNIZATION STATUS Childhood Immunizations: See Nurse Assessment Flu Vaccine: See Nurse Assessment - FAMILY HISTORY Family History: reviewed, not pertinent - SOCIAL HISTORY Smoking: denies Substance Use: denies Living Situation: care facility Physical Exam-General - PHYSICAL EXAM-ADULT Initial Vital Signs Reviewed: Yes - CONSTITUTIONAL General Appearance: appears well, alert, no apparent distress, obese - EYES Eyes: PERRL/EOMI, pink conjunctivae - HEAD, EARS, NOSE, MOUTH & THROAT HENMT: normocephalic/atraumatic, moist mucous membranes, normal ENT inspection - NECK Neck: non-tender, full range of motion, supple, normal inspection - RESPIRATORY Respiratory: chest non-tender, respiratory distress, wheezing (lower lung bilateral). negative: crackles, rales, rhonchi - CARDIOVASCULAR Cardiovascular: normal peripheral pulses, tachycardia (102) - GASTROINTESTINAL (ABDOMEN) Abdominal Exam: normal bowel sounds, non tender, soft - LYMPHATIC Lymphatic: no adenopathy - MUSCULOSKELETAL Back Exam: normal inspection, no CVA tenderness, no vertebral tenderness Extremity: normal range of motion, non-tender, normal inspection, no pedal edema , no calf tenderness, normal capillary refill - SKIN Integumentary: normal color, normal turgor, warm/dry - NEUROLOGIC Neurologic: grossly normal, no motor/sensory deficits - PSYCHIATRIC Psych/Mental Status: normal mood/affect, normal thought content, normal thought process, oriented x 3 Progress - PLAN OF CARE/RESULTS Progress/Plan/Lab Results: 10/24/18 12:25 Blood Culture - Final Blood NO GROWTH AFTER 5 DAYS 10/24/18 12:10 Blood Culture - Final Blood NO GROWTH AFTER 5 DAYS Orders Category Date Time Status Admit - [facility] - [facility] Routine AdmDCTranf 10/24/18 14:35 Active Activity - Up with Assistance ORDERED Care 10/24/18 14:35 Active Intake and Output-Strict ORDERED Care 10/24/18 14:35 Active Saline Loc NOW Care 10/24/18 10:48 Completed Vital Signs Order Q 4-HR ASSESS Care 10/24/18 14:35 Active Z-Document. for Tele Applied ORDERED Care 10/24/18 14:35 Completed CHEST-PORTABLE [RAD] Stat Exams 10/24/18 10:[address] HEAD W/O CONTRAST [CT] Stat Exams 10/24/18 10:[address] THORAX W/O CONTRAST [CT] Stat Exams 10/24/18 Completed MRA BRAIN W/O CONTRAST [MRI] Stat Exams 10/24/18 13:47 Completed MRA NECK W/O CONT [MRI] Stat Exams 10/24/18 13:47 Completed MRI BRAIN W/O CONTRAST [MRI] Stat Exams 10/24/18 13:47 Completed ABG [RESP] Routine Lab 10/24/18 11:33 Completed BLOOD CULTURE [BLDCUL] Stat Lab 10/24/18 12:25 Completed BMP [BASIC METABOLIC PANEL] [CHEM] Stat Lab 10/24/18 12:10 Completed CBC WITH ELECTRONIC DIFF [HEME] Stat Lab 10/24/18 12:10 Completed CK PROFILE [SP CHEM] Q6H Lab 10/24/18 16:30 Completed CK PROFILE [SP CHEM] Q6H Lab 10/24/18 20:26 Completed CK PROFILE [SP CHEM] Q6H Lab 10/25/18 02:20 Completed FERRITIN Timed Lab 10/24/18 12:10 Completed FOLATE Timed Lab 10/24/18 12:10 Completed HEPATIC FUNCTION [CHEM] Stat Lab 10/24/18 16:30 Completed LACTATE, PLASMA [CHEM] Stat Lab 10/24/18 12:10 Completed PROTIME WITH INR [COAG] Stat Lab 10/24/18 12:10 Completed PTT [COAG] Stat Lab 10/24/18 12:10 Completed TROPONIN T Q6H Lab 10/24/18 16:30 Completed TROPONIN T Q6H Lab 10/24/18 20:26 Completed TROPONIN T Q6H Lab 10/25/18 02:20 Completed TROPONIN T Stat Lab 10/24/18 12:10 Completed TSH Stat Lab 10/24/18 16:30 Completed UIBC W TOTAL IRON [CHEM] Timed Lab 10/24/18 12:10 Completed URINALYSIS W/POSS RFLX CULT [URINALYSIS] Stat Lab 10/24/18 12:00 Completed URINE CULTURE [RM] Routine Lab 10/24/18 13:18 Completed VITAMIN B12 Timed Lab 10/24/18 12:10 Completed 0.9% Sodium Chloride Inj [Ns] 500 ml Med 10/24/18 10:51 Discontinued IV 999 mls/hr Aspirin Med 10/24/18 10:51 Discontinued 325 mg PO NOW ONE CefTRIAXONE [Rocephin] 1 gm Med 10/24/18 10:51 Discontinued 0.9% Sodium Chloride Inj [Ns] 50 ml IV NOW Famotidine [Pepcid] Med 10/24/18 10:51 Discontinued 20 mg IV NOW ONE Methylprednisolone Sod Succ [Solu-Medrol] Med 10/24/18 10:51 Discontinued 125 mg IV NOW ONE Sodium Chloride 0.9% Med 10/24/18 10:51 Discontinued 5 - 10 ml INJ NOW ONE Oxygen Device Stat Oth 10/24/18 10:48 Completed Pulse Oximetry Stat Oth 10/24/18 10:49 Completed Telemetry [OM.EQ] Routine Oth 10/24/18 14:35 Active EKG [EKG] Stat Ther 10/24/18 10:49 Draft Echo Spec/Color Dop W/O Contra Routine Ther 10/24/18 14:35 Completed Transfer/Admit Order [TRANSFER] Routine Transfer 10/24/18 13:48 Completed Result Diagrams: 10/29/18 06:45 10/30/18 06:15 - REASSESSMENT Reassessment #1 Time Reassessed: 11:43 Status: unchanged Reassessment #2 Time Reassessed: 12:31 Status: improving Reassessment Comment: post neb tx Reassessment #3 Time Reassessed: 12:58 Status: unchanged Reassessment #4 Time Reassessed: 13:08 Status: improving (pt is now able to hold left arm up agains gravity 10 seconds , notably better than on presentation. she is breath better now post treatments and desats down to 91% rather than 80% this morning. 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 no prior stroke.) - EKG 1 Time of EKG reading by physician:: 10:58 EKG Read and Signed by:: Rk Bowie EKG Interpretation (*Must complete 3 of following elements*): Abnormal Rate: 104 Rhythm: sinus tachycardia QRS: LVH (with repolarization abnormality) TN Interval: normal ST Wave: normal - XRAY 1 XRAY: Bilateral XRAY Study: Chest (EXAM: CHEST-PORTABLE 10/24/2018 HISTORY: cough TECHNIQUE: AP portable COMMENT: There is increased interstitial opacity throughout both lungs compared to 09/05/2011. The lungs are not as well-expanded. IMPRESSION: Pulmonary edema and/or interstitial fibrosis. Electronically signed by Tuan Bernabe 10/24/2018 11:32 AM 10/24/18 1132 Interpreting Physician: Tuan Bernabe MD Dictated Date/Time: 10/24/18 1131 cc: Rk Bowie MD;) - CT/MRI 1 CT Study: Head (EXAM: CT HEAD W/O CONTRAST 10/24/2018 HISTORY: cva,weak left arm TECHNIQUE: This exam was performed using automated exposure control, adjustment of mA or kV according to patient size, and/or use of iterative reconstruction technique. COMMENT: There are calcifications in the internal carotid and vertebral arteries. There is moderate generalized cerebral atrophy and patchy lucencies present throughout the white matter both hemispheres. There is no evidence of mass effect or bleed. There are no previous studies available for comparison. The calvarium is intact. The visualized paranasal sinuses are clear. IMPRESSION: Atrophy and chronic ischemic change. No evidence of acute disease. Electronically signed by Tuan Bernabe 10/24/2018 11:29 AM 10/24/18 1129 Interpreting Physician: Tuan Bernabe MD Dictated Date/Time: 10/24/18 1127 cc: Rk Bowie MD;) - CONSULTS/PCP/HOSPITALIST Notification #1 *Consult/PCP/Hospitalist*: hospitalist dr mcclellan Time Discussed: 12:58 Reason/Comments: resp distress Consult Disposition: Admit Departure - Departure Date of Disposition Decision: 10/24/18 Time of Disposition Decision: 12:57 DIAGNOSIS: Hypoxia, Respiratory distress, Left arm weakness Pneumonia Qualifiers: Pneumonia type: due to unspecified organism Laterality: unspecified laterality Lung location: unspecified part of lung Qualified Code(s): J18.9 - Pneumonia, unspecified organism Disposition: ADMITTED INPATIENT 09 Certified Medical Emergency: Emergent Condition: Stable - Critical Care Note This patient required my direct & personal management of CC.: Yes Total Time (mins): 38 Critical Care Statement: This patient required my direct personal management to treat or rule out processes, the absence of which, could potentiallly result in sudden, clinically significant life or limb threatening deterioration. Attestation - Physician/ MICHAEL Attestation Patient care was provided by Advanced Practice Provider:: No The physician spent face to face time with patient:: Yes Advanced Practice Provider documentation review:: Supervising physician onsite and consulted in the evaluation and care of this patient. The physician did have a face to face encounter with the patient. This chart was documented by the indicated scribe, (Alma Torres Scribe) and accurately reflects the services I performed and decisions made by me, Rk Bowie MD, as attested by the provider's signature.
[2018-10-30 11:55] VITALS: BP 135/61
--- NOTE | 2018-10-30 12:55 | DISCHARGE SUMMARY ---
ADMISSION DATE: 10/24/2018 DISCHARGE DATE: 10/30/2018 PRINCIPAL DIAGNOSIS: Acute cerebrovascular accident. SECONDARY DIAGNOSES: 1. Probable pneumonia. 2. Pulmonary fibrosis. 3. Pulmonary hypertension. 4. Acute kidney injury superimposed on chronic kidney disease. 5. Acute diastolic heart failure. 6. Folate deficiency. 7. Dementia. 8. Hypothyroidism. DISCHARGE MEDICATIONS: Discharge medications include the followin. Benzonatate 100 mg p.o. 3 times a day. 2. Folic acid 1 mg p.o. daily. 3. Robitussin-DM 10 mL every 4 hours. 4. Aspirin 325 mg p.o. once a day. 5. Prednisone 5 mg p.o. daily. 6. Lisinopril 2.5 mg p.o. twice a day. 7. Nexium 20 g p.o. one twice a day. 8. Levothyroxine 75 mcg p.o. daily. 9. Glucosamine 500 mg p.o. twice a day. 10. Fluticasone nasal spray 1 spray nasally daily. 11. Fenofibrate 116 mg daily. 12. Donepezil 5 mg p.o. at bedtime. 13. Cetirizine 10 mg p.o. daily. 14. Atorvastatin 40 mg p.o. daily. 15. Albuterol sulfate inhaled twice a day. 16. Aspercreme 10% cream to be used as directed. CONSULTATIONS DONE DURING THIS HOSPITAL STAY: Dr. Mimi Keller, Pulmonology. PROCEDURES DONE DURING THIS HOSPITAL STAY: Chest CT 10/29/2017, MRI and MRA of the brain 10/24/2018. MRA of the neck 10/24/2018. A 2D echo of the heart 10/24/2018. Carotid Doppler study 10/26/2018. HOSPITAL COURSE: Ms. Viktoria Gomez is an 82-year-old female, who was diagnosed as having acute CVA at the time of presentation. MRI of the brain showed a few tiny acute cortical infarcts involving the posterior superior right frontal lobe and also possibly 1 more in the posterior superior left parietal lobe. The patient was placed on aspirin, statin and we did recommend PT. She was placed on antibiotics for possible pneumonia. She was also noted to have pulmonary fibrosis for which we got pulmonary evaluation. She was also started on diuretics in light of the fact that she was diagnosed as having acute diastolic heart failure. A 2D echo of the heart showed evidence of normal left ventricular chamber size, with borderline concentric LVH. Estimated ejection fraction about 65%. At this time, patient has done well and can be discharged back to [facility], where she will also need home health services. She is expected to take her discharge medications as noted above. She will need to follow up with her primary care physician as well as Pulmonology. Of note, she does have pulmonary fibrosis and she will definitely need a lead data entry operator to manage this condition in the outpatient. cc: Jacky Conley MD
== END 2018-10-30 15:31 | disposition home health service (06) | DRG 64 ==
LOC: ED 10:20 → SUATTDRO 14:20 → 3N 14:20
PROVIDERS: ATTEND Internal Medicine
CPT/HCPCS: 70450; 70544; 70547; 70551; 71010; 71045; 71250; 76770; 80048; 80061; 80076; 81001; 82550; 82553; 82570; 82607; 82728; 82746; 82805; 82948; 83036; 83540; 83550; 83605; 83721; 83735; 83880; 83935; 84145; 84156; 84300; 84443; 84484; 84540; 85025; 85610; 85730; 86038; 86200; 87040; 87088; 87205; 93005; 93010; 93306; 93880; 94640; 94761; 96365; 96375; 97110; 97116; 97162; 97165; 97530; 97535; 99285; A9270; J0692; J0696; J1650; J1940; J2920; J2930; J7040; S0028; XXXXX

== ENCOUNTER 2018-11-02 01:03 | Inpatient (IN) ==
[2018-11-02 01:44] LABS: ALLEN TEST YES; BE -0.7 mmoll (-3.0-3.0); BLOOD TYPE ARTERIAL; HCO3-(ACT) 24.3 mmoll (20.0-26.0); METHB 1.3 % (0.0-1.5); O2(CT) 15.1 mL/dL (15.0-23.0); O2HB 93.8 % (95.0-99.0); PCO2(98.6) 35 mmHg (35-45); PO2(98.6) 72 mmHg (60-100); SAMPLE BLOOD; SAO2 97.1 % (95.0-100.0); THB 11.4 g/dL (11.5-17.4); pH(98.6) 7.43 (7.35-7.45)
[2018-11-02 01:45] LABS: MODALITY CANNULA
[2018-11-02 02:07] LABS: BASO# 0.02 X1000 (0.0-0.2); BASO% 0.2 % (0.0-0.8); EOS# 0.82 X1000 (0.0-0.7); EOS% 6.6 % (0.0-10.0); HEMOGLOBIN 11.3 g/dL (12.0-16.0); IMM GRAN# 0.29 X1000 (0.0-0.04); IMM GRAN% 2.3 % (0.0-0.5); LYMPH# 2.41 X1000 (1.2-3.4); LYMPH% 19.3 % (20.5-51.1); MCH 28.9 PG (27-31); MCHC 33.2 g/dL (33-37); MONO# 1.05 X1000 (0.11-0.59); MONO% 8.4 % (1.7-9.3); MPV 9.9 FL (7.4-10.4); NEUT# 7.89 X1000 (1.4-6.5); NEUT% 63.2 % (42.2-75.2); PLT 292 X1000 (130-400); RBC 3.91 XMIL (4.2-5.4); RDW 13.7 % (11.5-14.5); WBC 12.48 X1000 (4.8-10.8)
[2018-11-02 02:30] LABS: URINE SOURCE CATH
[2018-11-02 02:37] LABS: BILIRUBIN URINE NEGATIVE (NEGATIVE); BLOOD URINE TRACE-INTACT (NEGATIVE); CLARITY CLEAR (CLEAR); COLOR YELLOW; GLUCOSE URINE NEGATIVE (NEGATIVE); KETONE URINE NEGATIVE (NEGATIVE); LEUKOCYTES URINE SMALL (NEGATIVE); NITRITE URINE NEGATIVE (NEGATIVE); PROTEIN URINE 30 mg/dL (NEGATIVE); UROBILINOGEN URINE 0.2 EU/dL (0.2-1.0)
[2018-11-02 02:45] LABS: URINE BACTERIA 1+ /HFP; URINE EPITHELIAL CELLS >10 /HPF (<10); URINE RBC <10 /HPF (<10); URINE YEAST PRESENT /HPF
[2018-11-02 02:57] LABS: ALB/GLOB RATIO 1.5; ALBUMIN 3.6 g/dL (3.5-5.0); CALCIUM 8.7 mg/dL (8.8-10.2); CREATININE 1.7 mg/dL (0.5-0.9); POTASSIUM 4.6 mmol/L (3.5-5.1); TOTAL BILIRUBIN 0.27 mg/dL (0.20-1.00)
[2018-11-02] MEDS ORDERED: ROCEPHIN 1 GM in NS 50 ML IV ONE (05:54)
--- NOTE | 2018-11-02 05:58 | PROVIDER DOCUMENTATION ---
This chart was entered by Sarah Torres Scribe, acting as scribe for Morris Kauffman MD. HPI-Respiratory General - General Chief Complaint: Shortness of Breath Stated Complaint: resp distress Time Seen by Provider: 11/02/18 01:12 Source: patient Allergies/Adverse Reactions: Patient Allergies Allergy/AdvReac Type Severity Reaction Status Date / Time codeine AdvReac ITCHING Verified 10/24/18 12:30 Home Medications: Home Medication List Medication Instructions Recorded Confirmed Last Taken Type ATORVAstatin [Lipitor] 40 mg PO QHS 10/24/18 10/24/18 10/23/18 20:00 History Albuterol Sulfate [Albuterol 8.5 gm IH BID 10/24/18 10/24/18 10/24/18 08:00 History Sulfate Hfa] Cetirizine HCl [Zyrtec] 10 mg PO DAILY 10/24/18 10/24/18 10/24/18 08:00 History Donepezil [Aricept] 5 mg PO QHS 10/24/18 10/24/18 10/23/18 20:00 History Esomeprazole Magnesium [Nexium] 20 mg PO BID 10/24/18 10/24/18 10/24/18 08:00 History Fenofibrate [Lofibra] 160 mg PO DAILY 10/24/18 10/24/18 10/24/18 08:00 History Fluticasone 50 Mcg Nasal [place] 1 spray AMANDO DAILY 10/24/18 10/24/18 10/24/18 08: 00 History [Flonase] Glucosamine 500 mg PO BID 10/24/18 10/24/18 10/24/18 08:00 History Levothyroxine [Synthroid] 75 microgm PO DAILY 10/24/18 10/24/18 10/24/18 08:00 History Lisinopril 2.5 mg PO BID 10/24/18 10/24/18 10/24/18 08:00 History Potassium Chloride E.r. [Klor-Con] 10 meq PO DAILY 10/24/18 10/24/18 10/24/18 08 :00 History Prednisone 5 mg PO DAILY 10/24/18 10/24/18 10/24/18 08:00 History Trolamine Salicylate/Aloe Vera 35.4 gm TP 4XDAY PRN 10/24/18 10/24/18 Unknown History [Aspercreme 10% Cream] Aspirin 325 mg PO DAILY tablet 10/30/18 Unknown Rx Benzonatate [Tessalon] 100 mg PO TID capsule 10/30/18 Unknown Rx Folic Acid 1 mg PO DAILY tablet 10/30/18 Unknown Rx Guaifenesin/Dm [Robitussin-Dm] 10 ml PO Q4H PRN PRN bottle 10/30/18 Unknown Rx - History of Present Illness-Resp Nature of Presenting Problem: Pt is 88/F presenting to ED w/ SOB that is just present today. Pt was released from hospital on Sunday after being dx w/ R sided pneumonia and pulmonary fibrosis and possible stroke. It is reported that she had some fever this morning but not now. Quality of Pain: reports: none Severity in ED: reports: moderate Onset/Duration: reports: other (just today) Timing: reports: still present Cough Quality/Degree: reports: mild Current Respiratory Medication Therapy: Initiated none Modifying Factors: improves with: nothing Associated Symptoms: reports: fever/chills, shortness of breath. denies: chest pain/soreness, headache Similar Symptoms Previously?: Yes Recently seen or treated by another doctor?: Yes Review of Systems - Adult - REVIEW OF SYSTEMS - ADULT Constitutional: reports: fever (earlier today). denies: chills Eyes: reports: no symptoms reported Ears, Nose, Mouth & Throat: reports: no symptoms reported Cardiovascular: reports: no symptoms reported Respiratory: reports: shortness of breath Gastrointestinal: reports: no symptoms reported Genitourinary: reports: no symptoms reported Musculoskeletal: reports: no symptoms reported Integumentary: reports: no symptoms reported Neurological: reports: no symptoms reported. denies: dizziness/vertigo, headache/migraines, loss of balance, numbness, slurred speech Psychiatric: reports: no symptoms reported Endocrine: reports: no symptoms reported Hematologic/Lymphatic: reports: no symptoms reported Allergic/Immunologic: reports: no symptoms reported All Other Systems: Reviewed and Negative Past History - Adult - PAST MEDICAL HISTORY-ADULT Review of Records: reports: Old Records Reviewed, Nursing Assessment Review, Medications Reviewed, Social history reviewed & non-contributory. Major Childhood Illnesses: reports: denies history Cardiovascular: reports: HTN Respiratory: reports: denies history Gastrointestinal: reports: GERD Obstetrical/Gynecological: reports: denies history Genitourinary: reports: denies history Musculoskeletal: reports: arthritis Neurological: reports: denies history Endocrine/Immune: reports: denies history Other Conditions: reports: denies history - PRIOR SURGERIES/PROCEDURES Surgical/Procedure History: reports: reviewed, not pertinent - IMMUNIZATION STATUS Childhood Immunizations: See Nurse Assessment Flu Vaccine: See Nurse Assessment - FAMILY HISTORY Family History: reviewed, not pertinent - SOCIAL HISTORY Smoking: denies, non-smoker Provider spent 3-5 mins advising pt. on dangers of tobacco.: Discussed manners to quit use, and f/u contacts for add'l counseling. Substance Use: none/never Alcohol Use Frequency: never Living Situation: family Physical Exam-General - PHYSICAL EXAM-ADULT Initial Vital Signs Reviewed: Yes - CONSTITUTIONAL General Appearance: appears well, alert, no apparent distress - EYES Eyes: PERRL/EOMI - HEAD, EARS, NOSE, MOUTH & THROAT HENMT: normocephalic/atraumatic, moist mucous membranes, normal ENT inspection, TMs normal, pharynx normal - NECK Neck: non-tender, full range of motion, supple, normal inspection - RESPIRATORY Respiratory: chest non-tender, lungs clear, normal breath sounds, no pleuratic chest pain, no respiratory distress, no accessory muscle use, rhonchi (R sided) - CARDIOVASCULAR Cardiovascular: normal peripheral pulses, regular rate, rhythm, no edema, no gallop, no murmur - GASTROINTESTINAL (ABDOMEN) Abdominal Exam: normal bowel sounds, non tender, soft - LYMPHATIC Lymphatic: no adenopathy - MUSCULOSKELETAL Back Exam: normal inspection, no CVA tenderness Extremity: normal range of motion, non-tender, normal gait - SKIN Integumentary: normal color, normal turgor, warm/dry - NEUROLOGIC Neurologic: grossly normal - PSYCHIATRIC Psych/Mental Status: normal mood/affect, normal thought content, normal thought process, oriented x 3 Progress - PLAN OF CARE/RESULTS Progress/Plan/Lab Results: Vital Signs - 8 hr 11/02/18 01:37 11/02/18 02:00 11/02/18 04:46 Temperature 98.9 F Pulse Rate 94 H 93 H 69 Respiratory Rate 24 18 20 Blood Pressure 134/55 134/55 126/70 O2 Sat by Pulse Oximetry 84 L 91 L 95 Laboratory Results - last 24 hr 11/02/18 11/02/18 11/02/18 01:20 01:20 01:20 WBC 12.48 H RBC 3.91 L Hgb 11.3 L Hct 34.0 L MCV 87.0 MCH 28.9 MCHC 33.2 RDW Std Deviation 13.7 Plt Count 292 MPV 9.9 Immature Gran % (Auto) 2.3 H Neut % (Auto) 63.2 Lymph % (Auto) 19.3 L Perkins % (Auto) 8.4 Eos % (Auto) 6.6 Baso % (Auto) 0.2 Immature Gran # (Auto) 0.29 H Neut # (Auto) 7.89 H Lymph # (Auto) 2.41 Perkins # (Auto) 1.05 H Eos # (Auto) 0.82 H Baso # (Auto) 0.02 Specimen Type Sample Site pH pCO2 pO2 HCO3 Base Excess Oxyhemoglobin ABG O2 Sat (Calculated) ABG O2 Saturation ABG Carboxyhemoglobin ABG Methemoglobin Kennedy Test A-a O2 Difference Total Hemoglobin Lactate Liter Flow Blood Gas Modality FiO2 % Sodium 136 Potassium 4.6 Chloride 101 Carbon Dioxide 22 L Anion Gap 13 BUN 56 H Creatinine 1.7 H Estimated GFR/1.73 m2 28 BUN/Creatinine Ratio 33 Glucose 119 H Calculated Osmolality 289 Calcium 8.7 L Total Bilirubin 0.27 AST 18 ALT 13 Alkaline Phosphatase 75 Troponin T [id number] Pept 735 H Total Protein 6.0 L Albumin 3.6 Globulin 2.4 Albumin/Globulin Ratio 1.5 Urine Source Urine Color Urine Clarity Urine pH Ur Specific Brothers Urine Protein Urine Ketones Urine Blood Urine Nitrite Urine Bilirubin Urine Urobilinogen Urine Microscopic RBC Urine WBC Urine Microscopic WBC Ur Epithelial Cells Urine Bacteria Urine Yeast Urine Glucose 11/02/18 11/02/18 11/02/18 01:20 01:35 02:13 WBC RBC Hgb Hct MCV MCH MCHC RDW Std Deviation Plt Count MPV Immature Gran % (Auto) Neut % (Auto) Lymph % (Auto) Perkins % (Auto) Eos % (Auto) Baso % (Auto) Immature Gran # (Auto) Neut # (Auto) Lymph # (Auto) Perkins # (Auto) Eos # (Auto) Baso # (Auto) Specimen Type ARTERIAL Sample Site R RADIAL pH 7.43 pCO2 35 pO2 72 HCO3 24.3 Base Excess -0.7 Oxyhemoglobin 93.8 L ABG O2 Sat (Calculated) 15.1 ABG O2 Saturation 97.1 ABG Carboxyhemoglobin 2.10 ABG Methemoglobin 1.3 Kennedy Test YES A-a O2 Difference 98.0 Total Hemoglobin 11.4 L Lactate 1.00 Liter Flow 2.5 Blood Gas Modality CANNULA FiO2 % 30.0 Sodium Potassium Chloride Carbon Dioxide Anion Gap BUN Creatinine Estimated GFR/1.73 m2 BUN/Creatinine Ratio Glucose Calculated Osmolality Calcium Total Bilirubin AST ALT Alkaline Phosphatase Troponin T 0.016 Szz-N-Xvgijzkudhz Pept Total Protein Albumin Globulin Albumin/Globulin Ratio Urine Source CATH Urine Color YELLOW Urine Clarity CLEAR Urine pH 6.0 Ur Specific Brothers 1.020 Urine Protein 30 A Urine Ketones NEGATIVE Urine Blood TRACE-INTACT A Urine Nitrite NEGATIVE Urine Bilirubin NEGATIVE Urine Urobilinogen 0.2 Urine Microscopic RBC <10 Urine WBC SMALL A Urine Microscopic WBC 10-20 A Ur Epithelial Cells >10 A Urine Bacteria 1+ Urine Yeast PRESENT Urine Glucose NEGATIVE Orders Category Date Time Status Update & Confirm Home Medicati ROUTINE Care 11/02/18 05:53 Active CHEST-PORTABLE [RAD] Stat Exams 11/02/18 01:22 Taken ABG [RESP] Routine Lab 11/02/18 01:35 Completed BLOOD CULTURE [BLDCUL] Stat Lab 11/02/18 05:54 Ordered CBC WITH ELECTRONIC DIFF [HEME] Stat Lab 11/02/18 01:20 Completed COMPREHENSIVE METABOLIC PANEL [CHEM] Stat Lab 11/02/18 01:20 Completed PRO B-NATRIURETIC PEPTIDE Stat Lab 11/02/18 01:20 Completed TROPONIN T Stat Lab 11/02/18 01:20 Completed Rocephin 1 gm/Ns IV Now Med 11/02/18 05:54 Ordered CefTRIAXONE [Rocephin] 1 gm 0.9% Sodium Chloride Inj [Ns] 50 ml IV NOW EKG [EKG] Stat Ther 11/02/18 01:13 Ordered Result Diagrams: 11/02/18 01:20 11/02/18 01:20 - XRAY 1 XRAY: Right XRAY Study: Chest Impression: Abnormal (Mild patchy infiltrate.) - CONSULTS/PCP/HOSPITALIST Notification #1 *Consult/PCP/Hospitalist*: Dr Conway Time Discussed: 05:57 Consult Disposition: Will see in ED, Admit Departure - Departure Date of Disposition Decision: 11/02/18 Time of Disposition Decision: 05:57 DIAGNOSIS: Pneumonia, Hypoxia, CHF (congestive heart failure), Renal insufficiency, UTI ( urinary tract infection) Disposition: ADMITTED INPATIENT 09 Certified Medical Emergency: Emergent Condition: Fair - Critical Care Note This patient required my direct & personal management of CC.: No Attestation - Physician/ MICHAEL Attestation Patient care was provided by Advanced Practice Provider:: No The physician spent face to face time with patient:: Yes Advanced Practice Provider documentation review:: Supervising physician onsite and consulted in the evaluation and care of this patient. The physician did have a face to face encounter with the patient. This chart was documented by the indicated scribe, (Sarah Torres, Mark) and accurately reflects the services I performed and decisions made by me, Morris Kauffman MD, as attested by the provider's signature.
[2018-11-02] MEDS ORDERED: ROBITUSSIN-DM PO PRN (06:05)
[2018-11-02] MEDS ORDERED: TYLENOL PO PRN (06:07)
[2018-11-02] MEDS ORDERED: LASIX IV ONE (06:14)
[2018-11-02] MEDS ORDERED: HEPARIN SUBQ SCH (06:15)
[2018-11-02] MEDS ORDERED: NS 1,000 ML IV SCH (06:15)
[2018-11-02] MEDS ORDERED: LEVAQUIN 750 MG/D5W 750 MG/150 ML IVPB IV SCH (06:15)
--- NOTE | 2018-11-02 07:00 | Diag Imaging Result Doc PS360 ---
EXAM: CHEST-PORTABLE 11/02/2018 HISTORY: sob TECHNIQUE: AP portable at 0136 COMMENT: There is diffuse coarse interstitial and alveolar opacity particularly in the right upper lobe. The latter is slightly worse than on 10/27/2018 although some of this may be due to less optimal expansion of the lungs. IMPRESSION: Pulmonary edema and/or pneumonia. Electronically signed by Tuan Bernabe 11/02/2018 6:58 AM
--- NOTE | 2018-11-02 07:27 | HISTORY AND PHYSICAL ---
CHIEF COMPLAINT: Shortness of breath, cough. HISTORY OF PRESENT ILLNESS: Ms. Gomez is an 88-year-old female who was just discharged from the hospital 2 days ago. She has a history of mild dementia, GERD, hyperlipidemia, arthritis, recently diagnosed acute CVA, pulmonary fibrosis, chronic kidney disease with recent acute kidney injury, hyperlipidemia and hypertension. She was just, as noted above, discharged 2 days ago and sent home on Levaquin. The daughter at the bedside stated that over the last couple of days, she just got progressively more short of breath. The first day she was back at her home at [facility] [place], she did go down to the dining room and eat. After that, she has not really wanted to get out of bed and has gotten more and more lethargic. Chest x-ray that was done in the emergency room again showed a fibrotic type picture with increased pulmonary vascular congestion and mildly increased infiltrates. She will be admitted for further evaluation and treatment. PAST MEDICAL HISTORY: See HPI. PREVIOUS SURGICAL HISTORY: 1. Hysterectomy. 2. Multiple breast biopsies which were negative. 3. Hip arthroplasty. SOCIAL HISTORY: . No tobacco, alcohol or illicit drugs. She lives at [facility]. FAMILY HISTORY: Father had leukemia. Mother had congestive heart failure. ALLERGIES: To codeine. HOME MEDICATIONS: A list of home medications has not been reconciled. An order was placed for nursing to reconcile home medications. On her recent discharge summary, it appears that she was discharged on Tessalon, folic acid, Robitussin DM, aspirin, prednisone, lisinopril, Nexium, levothyroxine, glucosamine, Nasonex nose spray, fenofibrate, donepezil, Zyrtec, atorvastatin, Albuterol and Aspercreme. Also was a note that she was going to be discharged on Levaquin. REVIEW OF SYSTEMS: A 14 point review of systems conducted with the patient. She had a dizzy spell, slid off of her couch, hit her elbow, had some elbow pain, very mild. Other pertinent positives for admission are listed above in the HPI. All other systems reviewed and found to be negative. PHYSICAL EXAMINATION: VITAL SIGNS: Temperature 98.9 degrees, pulse 69, respirations 20, blood pressure 126/70, oxygen saturation 95% on 3 L nasal cannula. GENERAL: Pleasant 88-year-old female lying in the stretcher, answers all questions appropriately. She was oriented to person, place, somewhat disoriented to situation and disoriented to time. HEENT: Head is atraumatic, normocephalic. Pupils equal, round and react to light. Extraocular eye movements intact. Sclerae anicteric. Conjunctivae pink. Oral mucosa is dry. NECK: Supple. No JVD, no thyromegaly. Trachea is midline. No cervical lymphadenopathy. CARDIAC: S1, S2 appreciated. 2/6 systolic ejection murmur noted. No gallops, no rubs. LUNGS: Crepitations noted in bilateral bases. No rhonchi. No wheezes. Symmetric rise and fall of respirations, decreased bilaterally. ABDOMEN: Soft, nondistended, nontender. Bowel sounds present in all 4 quadrants. Normoactive. No pulsatile masses. No organomegaly. EXTREMITIES: No cyanosis, clubbing or edema. 1+ pedal pulses bilaterally. GENITOURINARY: No bladder distention. Patient voids otherwise. NEUROLOGICAL: Alert and oriented to person and place. Disoriented to time. Oriented somewhat to situation. DIAGNOSTIC DATA: Chest x-ray shows interstitial fibrosis, mild pulmonary vascular markings, questionable increase of infiltrate. LABORATORY DATA: WBC 12.47, hemoglobin 11.3, hematocrit 34, platelet count 292, 000. ABG, PO2 72 on 2.5 L nasal cannula. Sodium 136, potassium 4.6, chloride 101, carbon dioxide 22, BUN 56, creatinine 1.7, glucose 119. ASSESSMENT AND PLAN: 1. Pneumonia. We will treat as healthcare acquired. She was just discharged 2 days ago. Continue Levaquin 750 q.48 hours, renal dose. Add Maxipime. Blood cultures and sputum cultures. 2. Hyperlipidemia. Continue statin. 3. Acute kidney injury on chronic kidney disease. I believe her baseline creatinine is around 1.4. We will hold lisinopril. Her ProBNP is elevated and her chest x-ray does show what is possibly increased pulmonary vascular congestion. We will give 1 time 40 mg dose of Lasix. Recheck laboratory data. 4. Hypertension, GERD and dementia. Continue home medications. Further recommendations per patient's clinical course. Dictated by ERENDIRA Beasley for Sebastián Conway MD I have performed a face to face diagnostic evaluation. Labs/ Xrays- reviewed. Exam- Lungs- rhonchi A/P- Pneumonia- Admit, check blood cultures, IV ABX Dr. Conway cc: ERENDIRA Beasley MD [facility] CENTERDariana
[2018-11-02] MEDS: ASPIRIN PO SCH (08:47)
[2018-11-02] MEDS: ZYRTEC PO SCH (08:47)
[2018-11-02] MEDS: FOLIC ACID PO SCH (08:48)
[2018-11-02] MEDS: LOFIBRA PO SCH (08:48)
[2018-11-02] MEDS: SYNTHROID PO SCH (08:48)
[2018-11-02] MEDS: PREDNISONE PO SCH (08:48)
[2018-11-02] MEDS: PRILOSEC PO SCH ×2 (08:48→21:25)
[2018-11-02] MEDS ORDERED: TESSALON PO SCH (09:00)
[2018-11-02] MEDS ORDERED: VENTOLIN HFA INH SCH (09:00)
[2018-11-02] MEDS ORDERED: TUSSIONEX LIQUID PO ONE (11:11)
[2018-11-02] MEDS: ZYVOX 600 MG/D5W 600 MG/300 ML IVPB IV SCH ×2 (11:18→23:06)
[2018-11-02] MEDS: DUONEB (A & A) INH SCH ×3 (11:35→22:00)
[2018-11-02] MEDS: FLONASE NAS SCH (16:58)
[2018-11-02] MEDS: DIFLUCAN PO SCH (17:31)
[2018-11-02] MEDS: MAXIPIME 0.5 GM in NS 50 ML IV SCH (17:31)
--- NOTE | 2018-11-02 20:11 | Diag Imaging Result Doc PS360 ---
EXAM: CT THORAX W/O CONTRAST 11/02/2018 HISTORY: hcap TECHNIQUE: This exam was performed using automated exposure control, adjustment of mA or kV according to patient size, and/or use of iterative reconstruction technique. COMMENT: The current study is compared with the previous study of 10/24/2018. The patchy groundglass opacities which were described to the previous study are slightly worse than they were particularly with regard to the right upper lobe. There are bronchiectatic changes present in both upper lobes anteriorly. There is also bronchiectasis in the right upper lobe. There are calcified nodes in the subcarina and right hilum. There is noncalcified nodes in the right paratracheal and aorticopulmonary window region which have not changed significantly since the previous study. The regional skeleton is stable in appearance. IMPRESSION: Worsened pneumonia and/or pulmonary edema superimposed on bronchiectasis and fibrotic changes. Electronically signed by Tuan Bernabe 11/02/2018 8:09 PM
[2018-11-02] MEDS: TUSSIONEX LIQUID PO SCH (21:24)
[2018-11-02] MEDS: HEPARIN SUBQ SCH (21:25)
[2018-11-02] MEDS: LIPITOR PO SCH (21:25)
[2018-11-02] MEDS: ARICEPT PO SCH (21:25)
[2018-11-02] MEDS: VENTOLIN HFA INH SCH (21:59)
[2018-11-02] MEDS: GYNE-LOTRIMIN VAGINAL CREAM VAG SCH (23:05)
[2018-11-03 02:28] LABS: URINE SOURCE CLEAN CATCH
[2018-11-03 02:31] LABS: BILIRUBIN URINE NEGATIVE (NEGATIVE); BLOOD URINE LARGE (NEGATIVE); COLOR YELLOW; GLUCOSE URINE NEGATIVE (NEGATIVE); KETONE URINE NEGATIVE (NEGATIVE); LEUKOCYTES URINE NEGATIVE (NEGATIVE); NITRITE URINE NEGATIVE (NEGATIVE); PROTEIN URINE 30 mg/dL (NEGATIVE); SP GRAVITY URINE 1.017; TURBIDITY URINE HAZY (CLEAR); UROBILINOGEN URINE NORMAL (NORMAL)
[2018-11-03 03:11] LABS: UR EPITHELIAL CELLS >10 /HPF (<10); URINE BACTERIA NEGATIVE /HPF; URINE CASTS NONE SEEN; URINE CRYSTALS NONE SEEN; URINE RBC TNTC /HPF (<10); URINE SMALL ROUND CELLS NONE SEEN; URINE WBC TNTC /HPF (<10); URINE YEAST NONE SEEN
[2018-11-03] MEDS: DUONEB (A & A) INH SCH ×4 (03:50→19:30)
[2018-11-03] MEDS: MAXIPIME 0.5 GM in NS 50 ML IV SCH ×2 (06:13→17:50)
[2018-11-03] MEDS: SYNTHROID PO SCH (06:15)
[2018-11-03 07:24] LABS: BASO# 0.01 X1000 (0.0-0.2); BASO% 0.1 % (0.0-0.8); EOS# 0.46 X1000 (0.0-0.7); EOS% 3.8 % (0.0-10.0); HEMOGLOBIN 10.4 g/dL (12.0-16.0); IMM GRAN# 0.08 X1000 (0.0-0.04); IMM GRAN% 0.7 % (0.0-0.5); LYMPH# 1.39 X1000 (1.2-3.4); LYMPH% 11.6 % (20.5-51.1); MCH 28.7 PG (27-31); MCHC 32.5 g/dL (33-37); MCV 88.2 FL (81-99); MONO# 0.97 X1000 (0.11-0.59); MONO% 8.1 % (1.7-9.3); NEUT# 9.08 X1000 (1.4-6.5); NEUT% 75.7 % (42.2-75.2); PLT 265 X1000 (130-400); RBC 3.63 XMIL (4.2-5.4); RDW 13.7 % (11.5-14.5); WBC 11.99 X1000 (4.8-10.8)
[2018-11-03 07:49] LABS: CALCIUM 8.3 mg/dL (8.8-10.2); CREATININE 1.4 mg/dL (0.5-0.9); POTASSIUM 4.2 mmol/L (3.5-5.1)
[2018-11-03] MEDS: FOLIC ACID PO SCH (08:33)
[2018-11-03] MEDS: PRILOSEC PO SCH ×2 (08:33→22:03)
[2018-11-03] MEDS: LOFIBRA PO SCH (08:33)
[2018-11-03] MEDS: ASPIRIN PO SCH (08:33)
[2018-11-03] MEDS: DIFLUCAN PO SCH (08:33)
[2018-11-03] MEDS: PREDNISONE PO SCH (08:33)
[2018-11-03] MEDS: ZYRTEC PO SCH (08:34)
[2018-11-03] MEDS: HEPARIN SUBQ SCH ×2 (08:34→22:03)
[2018-11-03] MEDS: FLONASE NAS SCH (08:35)
[2018-11-03] MEDS: TUSSIONEX LIQUID PO SCH ×2 (08:48→22:03)
[2018-11-03] MEDS: VENTOLIN HFA INH SCH ×2 (10:10→21:17)
[2018-11-03] MEDS: ZYVOX 600 MG/D5W 600 MG/300 ML IVPB IV SCH ×2 (12:00→22:16)
--- NOTE | 2018-11-03 12:32 | PROGRESS NOTE ---
DATE: 11/03/2018 SUBJECTIVE: Patient continues to have a cough. She reports that she had a dry cough although she has secretions that she is not able to bring up. She denies any fever or chills. Overall she reports feeling better than yesterday. OBJECTIVE: Vital Signs: Temperature 97.9 degrees, heart rate 71 respiratory 13 , blood pressure 112/39, O2 saturation 96% on 4 L nasal cannula. General Examination: This is an 88-year-old female lying in bed, in no acute distress. HEENT: Head is normocephalic, atraumatic. Mucous membranes dry. Neck: No JVD noted. No carotid bruits. No lymphadenopathy. No thyromegaly. Cardiovascular: S1, S2 heard. No murmurs, gallops, or rubs. Regular rate and rhythm. Respiratory: Coarse breath sounds in both pulmonary bases as well as crepitations. Patient is not using any accessory muscles or having work of breathing. Abdomen : Soft. Nontender to palpation. Bowel sounds present. No organomegaly. Extremities: No clubbing, cyanosis, or edema. Peripheral pulses present in both legs. Neurological: Patient is alert and oriented to time. LABORATORY DATA: White cell count 11.99, with hemoglobin 10.4, hematocrit 32.0 , platelets 265,000. BMP shows creatinine 1.4. ASSESSMENT AND PLAN: 1. Healthcare-associated pneumonia. The patient is on cefepime and Zyvox. The patient reports still having some cough so we will add Tessalon Perles p.r.n. cough. She is requiring 4 L of oxygen by nasal cannula. We will continue with the same management. 2. Acute on chronic kidney disease. Patient's baseline creatinine is 1.4 which is the creatinine today. At this point, we will continue to monitor BMP daily while this patient is here in the hospital. 3. Hypertension. Blood pressure is under control. We will continue with the same management. 4. Gastroesophageal reflux disease. Patient is on Protonix. We will continue with the same management. 5. Dementia. Aware. Will continue with home medications. 6. Disposition. We will continue to monitor this patient closely. She will be here for a few days because the last time she was discharged after 2 days she was readmitted. cc: MD AMRIK Manriquez
[2018-11-03] MEDS: TESSALON PO PRN (18:20)
[2018-11-03] MEDS: LIPITOR PO SCH (22:03)
[2018-11-03] MEDS: ARICEPT PO SCH (22:03)
[2018-11-03] MEDS: GYNE-LOTRIMIN VAGINAL CREAM VAG SCH (22:11)
[2018-11-04] MEDS: DUONEB (A & A) INH SCH ×4 (03:47→23:30)
[2018-11-04] MEDS: SYNTHROID PO SCH (06:29)
[2018-11-04] MEDS: MAXIPIME 0.5 GM in NS 50 ML IV SCH ×2 (06:29→18:00)
[2018-11-04 07:56] LABS: BASO# 0.02 X1000 (0.0-0.2); BASO% 0.2 % (0.0-0.8); EOS# 0.54 X1000 (0.0-0.7); EOS% 4.9 % (0.0-10.0); HEMATOCRIT 34.2 % (37.0-47.0); IMM GRAN# 0.07 X1000 (0.0-0.04); IMM GRAN% 0.6 % (0.0-0.5); LYMPH# 1.96 X1000 (1.2-3.4); LYMPH% 17.7 % (20.5-51.1); MCH 28.7 PG (27-31); MCHC 32.2 g/dL (33-37); MCV 89.3 FL (81-99); MONO# 0.81 X1000 (0.11-0.59); MONO% 7.3 % (1.7-9.3); MPV 9.6 FL (7.4-10.4); NEUT% 69.3 % (42.2-75.2); PLT 274 X1000 (130-400); RBC 3.83 XMIL (4.2-5.4); RDW 13.7 % (11.5-14.5)
[2018-11-04 08:17] LABS: CALCIUM 8.6 mg/dL (8.8-10.2); CREATININE 1.3 mg/dL (0.5-0.9); POTASSIUM 4.2 mmol/L (3.5-5.1)
[2018-11-04] MEDS: HEPARIN SUBQ SCH (08:20)
[2018-11-04] MEDS: ZYRTEC PO SCH (08:21)
[2018-11-04] MEDS: PRILOSEC PO SCH ×2 (08:21→23:59)
[2018-11-04] MEDS: FLONASE NAS SCH (08:21)
[2018-11-04] MEDS: PREDNISONE PO SCH (08:21)
[2018-11-04] MEDS: FOLIC ACID PO SCH (08:21)
[2018-11-04] MEDS: ASPIRIN PO SCH (08:21)
[2018-11-04] MEDS: DIFLUCAN PO SCH (08:21)
[2018-11-04] MEDS: LOFIBRA PO SCH (08:22)
--- NOTE | 2018-11-04 08:47 | EKG Report ---
Test Performed on : 11/02/2018 07:16:56 AM Test Reason : sob Blood Pressure : / mmHG Vent. Rate : 073 BPM Atrial Rate : 073 BPM P-R Int : 198 ms QRS Dur : 102 ms QT Int : 380 ms P-R-T Axes : 008 -17 058 degrees QTc Int : 418 ms Sinus rhythm. with premature atrial complexes. Left ventricular hypertrophy with repolarization abnormality Abnormal ECG When compared with ECG of 26-OCT-2018 06:35, premature atrial complexes. are now present Unconfirmed Result
[2018-11-04] MEDS: TESSALON PO PRN (09:00)
[2018-11-04] MEDS: TUSSIONEX LIQUID PO SCH (09:14)
[2018-11-04] MEDS: VENTOLIN HFA INH SCH ×2 (09:24→23:54)
[2018-11-04] MEDS ORDERED: MUCOMYST 20% PO SCH (10:30)
[2018-11-04] MEDS: ROBITUSSIN-AC PO PRN (10:45)
[2018-11-04] MEDS: ZYVOX 600 MG/D5W 600 MG/300 ML IVPB IV SCH ×2 (12:00→23:55)
--- NOTE | 2018-11-04 13:36 | PROGRESS NOTE ---
DATE: 11/04/2018 SUBJECTIVE: Patient has been decline in the last 24 hours. Unfortunately those spells of cough are making her feel worse. When she started coughing her oxygen need drops to 85 and 94 on 2 L nasal cannula. No other issues noted as per nursing staff overnight. OBJECTIVE: Vital Signs: Temperature 98.3 degrees, heart rate 90, respiratory 20, blood pressure 162/49, O2 saturation 95% on Venturi mask. General: This is a 88-year-old chronically ill- looking female lying in bed in no acute distress. HEENT: Head is normocephalic, atraumatic. Neck: No JVD noted. No carotid bruits, no lymphadenopathy, no thyromegaly. Cardiovascular: S1, S2 heard. No murmurs, gallops, or rubs. Regular rate and rhythm. Respiratory: Coarse breath sounds still present in both pulmonary bases minimal crepitations but patient not using any accessory muscles or having work of breathing. Abdomen: Soft, nontender to palpation, bowel sounds present. No organomegaly. Extremities: No clubbing, cyanosis, or edema. Peripheral pulses present in both legs. Neurologic: Patient is alert and oriented x3, moves 4 extremities. LABORATORY DATA: White cell count 11.1, hemoglobin 11.0, hematocrit 34.2, platelets 274,000. BMP remarkable for creatinine 1.3. ASSESSMENT AND PLAN: 1. Healthcare-associated pneumonia, clinically this patient is getting worse, she has pulmonary fibrosis that was recently diagnosed few months ago and since then she is coughing a lot. On top of that she has developed healthcare associated pneumonia. Currently she is on cefepime and Zyvox. She is still having cough so at this point will add guaifenesin to her current treatment, every time she start coughing she will start desaturating. Will monitor this patient closely. 2. Acute on chronic kidney disease. Creatinine is 1.3 today, will continue to monitor BMP. 3. Hypertension, blood pressure is under normal limits so will continue with same management. 4. Gastroesophageal reflux disease. Will continue with Protonix. 5. Advanced dementia. Patient is on home medication. 6. Disposition. At this point will continue to monitor this patient closely. If she continues to desaturate I think will need to transfer to [facility] but by now will monitor this patient closely here in the 3rd floor. Addendum: I spoke with daughter and she expressed her concern her mother may not improve. We agreed to continue with full care for one more day and if no improvement will change to comfort care measures only. Will continue to monitor. cc: Jamel Dave MD MTDD
[2018-11-04] MEDS ORDERED: MORPHINE IV PRN (13:53)
[2018-11-04] MEDS ORDERED: ATIVAN IV PRN (13:54)
[2018-11-04] MEDS: MUCOMYST 20% INH SCH (23:30)
[2018-11-05] MEDS: ARICEPT PO SCH
[2018-11-05] MEDS: LIPITOR PO SCH
[2018-11-05] MEDS: GYNE-LOTRIMIN VAGINAL CREAM VAG SCH (00:42)
[2018-11-05] MEDS: TESSALON PO PRN ×2 (03:22→11:02)
[2018-11-05] MEDS: DUONEB (A & A) INH SCH ×3 (03:27→11:42)
[2018-11-05] MEDS: SYNTHROID PO SCH (06:52)
[2018-11-05] MEDS: MAXIPIME 0.5 GM in NS 50 ML IV SCH (06:52)
[2018-11-05] MEDS: ROBITUSSIN-AC PO PRN ×2 (06:57→14:14)
[2018-11-05 07:49] VITALS: BP 136/47
[2018-11-05] MEDS: MUCOMYST 20% INH SCH (07:55)
[2018-11-05 07:56] LABS: BASO# 0.02 X1000 (0.0-0.2); BASO% 0.2 % (0.0-0.8); EOS# 0.49 X1000 (0.0-0.7); EOS% 5.5 % (0.0-10.0); HEMATOCRIT 32.6 % (37.0-47.0); HEMOGLOBIN 10.5 g/dL (12.0-16.0); IMM GRAN# 0.04 X1000 (0.0-0.04); IMM GRAN% 0.4 % (0.0-0.5); LYMPH# 1.29 X1000 (1.2-3.4); LYMPH% 14.4 % (20.5-51.1); MCHC 32.2 g/dL (33-37); MCV 90.1 FL (81-99); MONO# 0.75 X1000 (0.11-0.59); MONO% 8.4 % (1.7-9.3); MPV 9.6 FL (7.4-10.4); NEUT# 6.39 X1000 (1.4-6.5); NEUT% 71.1 % (42.2-75.2); PLT 245 X1000 (130-400); RBC 3.62 XMIL (4.2-5.4); RDW 13.6 % (11.5-14.5); WBC 8.98 X1000 (4.8-10.8)
[2018-11-05 08:12] LABS: CALCIUM 8.5 mg/dL (8.8-10.2); CREATININE 1.2 mg/dL (0.5-0.9); POTASSIUM 3.9 mmol/L (3.5-5.1)
[2018-11-05] MEDS: HEPARIN SUBQ SCH ×2 (09:24)
[2018-11-05] MEDS: TUSSIONEX LIQUID PO SCH ×2 (09:25)
[2018-11-05] MEDS: ZYRTEC PO SCH (09:25)
[2018-11-05] MEDS: FOLIC ACID PO SCH (09:25)
[2018-11-05] MEDS: PREDNISONE PO SCH (09:25)
[2018-11-05] MEDS: PRILOSEC PO SCH (09:25)
[2018-11-05] MEDS: DIFLUCAN PO SCH (09:25)
[2018-11-05] MEDS: ASPIRIN PO SCH (09:25)
[2018-11-05] MEDS: LOFIBRA PO SCH (09:26)
[2018-11-05] MEDS: FLONASE NAS SCH (09:35)
[2018-11-05] MEDS: ZYVOX 600 MG/D5W 600 MG/300 ML IVPB IV SCH (11:03)
--- NOTE | 2018-11-05 11:09 | PROGRESS NOTE ---
DATE: 11/05/2018 SUBJECTIVE: During the last 24 hours, patient has been more stable. This morning she had some cough spells, but at this point she looks stable and not coughing to me. Also, daughter who is at bedside reports that she has been feeling better. OBJECTIVE: Vital Signs: Temperature 97.8, heart rate 66, respiratory rate 22, blood pressure 136/47, O2 saturation 95% on Venturi mask at 15 L/minute. General examination: This is a chronically ill looking, 88-year-old female, lying in bed in no acute distress. HEENT: Head is normocephalic, atraumatic. Neck: No JVD noted. No carotid bruits. No lymphadenopathy. No thyromegaly. Cardiovascular exam: S1, S2 heard. No murmurs, gallops, or rubs. Regular rate and rhythm. Respiratory exam: Coarse breath sounds still present in both pulmonary bases with minimal crepitations noted, but patient is not using any accessory muscles or having work of breathing. Abdomen: Soft, nontender to palpation. Bowel sounds present. No organomegaly. Extremities: No clubbing, cyanosis, or edema. Peripheral pulses present in both legs. Neurological exam: Patient is alert and, oriented x3. Moves 4 extremities. LABORATORY DATA: White cell count 8.98, hemoglobin 10.5, hematocrit 32.6, platelets 245. Sodium 133, creatinine 1.2. ASSESSMENT AND PLAN: 1. Healthcare-associated pneumonia. Clinically, this patient is stable, not improving, but not getting worse. The patient is on Zyvox and cefepime. We are providing more medications for cough because basically this cough spells are what makes her more agitated and makes the O2 saturation drops. Currently, she is on Tussionex and also guaifenesin. We will continue to monitor this patient closely. 2. Acute on chronic kidney disease. Creatinine is almost back to normal. Today is 1.2. We will continue to monitor. 3. Hypertension. Blood pressure is within normal limits. We will continue with the same medications. 4. Gastroesophageal reflux disease. We will continue with Protonix. 5. Advanced dementia. The patient is on home medications. 6. Disposition: At this point, we will continue to monitor this patient closely. Family agree. Will continue with full care for this patient. cc: Jamel Dave MD MTDD
[2018-11-05] MEDS: VENTOLIN HFA INH SCH (11:41)
[2018-11-05] MEDS ORDERED: MORPHINE IV PRN (14:58)
[2018-11-05] MEDS ORDERED: ATIVAN IV PRN (14:58)
--- NOTE | 2018-11-06 15:51 | DISCHARGE SUMMARY ---
ADMISSION DATE: 11/02/2018 DISCHARGE DATE: 11/05/2018 DISCHARGE DIAGNOSES: The patient unfortunately from the following diagnoses: 1. Healthcare-associated pneumonia. 2. Acute kidney injury. 3. Hyperlipidemia. 4. Hypertension. CONSULTATIONS: None. PROCEDURES: 1. X-ray done on admission showed pulmonary edema and/or pneumonia. 2. Chest CT showed worsening pneumonia and/or pulmonary edema superimposed on bronchiectasis and fibrotic changes. HOSPITAL COURSE: In brief, this was an 88-year-old female who was recently discharged from the hospital 2 days before. She was admitted to the hospital at that time for pneumonia and she came basically complaining of shortness of breath, and she was getting more lethargic, so we started IV antibiotics in this patient. Unfortunately, she was not getting better. She has bad coughing spells that she was requiring 2 to 3 medications to control. The patient also received breathing treatments, but unfortunately she continued to get worse, so the daughter requested to have withdrawal of care, also comfort care measures only. Unfortunately, the patient at [id number]. cc: aJmel Dave MD
== END 2018-11-05 17:06 | disposition expired | DRG 194 ==
LOC: ED 01:03 → 3N 06:31 → SUATTDRO 06:31 → 3N 06:43
PROVIDERS: ATTEND Internal Medicine
CPT/HCPCS: 71010; 71045; 71250; 80048; 80053; 81001; 82805; 82948; 83880; 84484; 85025; 87040; 87088; 93005; 94640; 94761; 94799; 96365; 96375; 99285; A9270; J0692; J0696; J1644; J1940; J1956; J2020; J2060; J2270; J7030; J7506; J7512; XXXXX